=== PATIENT | female | born 1960 | race Hispanic/Latino ===

== ENCOUNTER 2023-07-18 13:22 | Observation (INO) | payer OTHER ==
[~2023-07-18] VITALS: Ht 160 cm; Wt 98.8 kg
[~2023-07-18 13:22] MED LIST: ACET-2247 PO; AMIT25TA9 PO; ASPI-1197 PO; ATOR40TA69 PO; CEFU500T67 PO; CEPH500B PO; FURO20TA6 PO; GABA300C PO; LOSA50TA64 PO; METO25TA6 PO; ONDA4TAB10 PO; PHEN100C9 PO
[2023-07-18 14:08] LABS: BASOPHILS # (AUTO) 0.02 K/uL (0.00-0.20); BASOPHILS % (AUTO) 0.2 % (0.0-5.0); EOSINOPHILS # (AUTO) 0.15 K/uL (0.00-0.70); EOSINOPHILS % (AUTO) 1.6 % (0.0-8.0); HEMATOCRIT 38.6 % (36-48); IMMATURE GRANULOCYTE ABSOLUTE 0.12 K/uL (0-1); LYMPHOCYTES # (AUTO) 0.9 K/uL (1.0-4.8); LYMPHOCYTES % (AUTO) 10.1 % (21.0-51.0); MEAN CORPUSCULAR HEMOGLOBIN 28.1 pg (27.0-33.0); MEAN CORPUSCULAR HGB CONC 33.2 g/dL (32.0-36.0); MEAN CORPUSCULAR VOLUME 84.6 fL (79-99); MONOCYTES # (AUTO) 0.6 K/uL (0.1-1.0); MONOCYTES % (AUTO) 6.2 % (3.0-13.0); NEUTROPHILS # (AUTO) 7.4 K/uL (1.8-7.7); NEUTROPHILS % (AUTO) 80.6 % (40.0-77.0); PLATELET COUNT (AUTO) 145 K/uL (130-400); RED BLOOD CELL COUNT(AUTO) 4.56 MIL/uL (4.00-5.50); RED CELL DISTRIBUTION WIDTH 12.4 % (11.0-15.5); WHITE BLOOD COUNT (AUTO) 9.2 K/uL (4.8-10.8)
[2023-07-18] MEDS: 0.9%NACL 1000ML 1,000 ML IV ONE ×3 (14:10→18:03)
[2023-07-18 14:20] LABS: CREATININE 0.8 mg/dL (0.5-1.5); MAGNESIUM 1.4 mg/dL (1.80-2.40); POTASSIUM 4.2 mmol/L (3.5-5.1)
[2023-07-18 15:06] LABS: APPEARANCE,URINE CLEAR (CLEAR); BILIRUBIN,URINE NEGATIVE (NEGATIVE); COLOR,URINE LIGHT-YELLOW (YELLOW); GLUCOSE, URINE (UA) >=1000 mg/dL (NEGATIVE); KETONES,URINE 5 mg/dL (NEGATIVE); LEUKOCYTE ESTERASE ,URINE 250 Leu/uL (NEGATIVE); NITRATE,URINE NEGATIVE (NEGATIVE); OCCULT BLOOD,URINE NEGATIVE (NEGATIVE); PH,URINE 6.5 (5.0-8.0); PROTEIN,URINE NEGATIVE (NEGATIVE); UROBILINOGEN,URINE 0.2 mg/dL (0.2-1.0)
[2023-07-18] MEDS: INSULIN HUMULIN R 100 UNIT/ML 3ML IV ONE (15:06)
[2023-07-18] MEDS: MAGNESIUM 2GM PREMIX 50ML 50 ML IV SCH (15:09)
[2023-07-18 15:15] LABS: SARS-CoV-2, RNA, NAAT POSITIVE SARS CoV-2 (NEGATIVE)
[2023-07-18 15:19] LABS: ADD UA MICROSCOPIC YES
[2023-07-18 15:25] LABS: RAPID GROUP A STREP negative (NEGATIVE)
[2023-07-18 15:34] LABS: INFLUENZA TYPE A Negative For Type A (NEGATIVE); INFLUENZA TYPE B Negative For Type B (NEGATIVE)
[2023-07-18 15:36] LABS: MUCUS,URINE RARE LPF (None Seen); RBC,URINE 0-1 /HPF (0-1); SQUAMOUS EPITHELIAL CELL,UR FEW /HPF (0-2)
[2023-07-18] MEDS: CEFTRIAXONE 1G VIAL IVPB SCH (16:07)
[2023-07-18 17:13] LABS: HEMOGLOBIN A1C 10.1 % (4.0-6.0)
[2023-07-18] MEDS ORDERED: AMLO-257 PO (17:43)
[2023-07-18] MEDS ORDERED: LOSA100T59 PO (17:44)
[2023-07-18] MEDS ORDERED: SEMA1PEN3 SQ (17:47)
[2023-07-18] MEDS ORDERED: AMIT25TA9 PO (17:47)
[2023-07-18] MEDS: ACETAMINOPHEN 325 MG TAB PO PRN (20:20)
[2023-07-18] MEDS ORDERED: HYDRALAZINE 20MG/ML VIAL IV PRN (21:00)
[2023-07-18] MEDS: ATORVASTATIN 40 MG TABLET PO SCH (21:32)
[2023-07-18] MEDS: AMITRIPTYLINE 25 MG TABLET PO SCH (21:33)
[2023-07-18] MEDS: AMLODIPINE 5 MG TAB PO SCH (21:33)
[2023-07-18] MEDS: GABAPENTIN 300 MG CAPSULE PO SCH (21:33)
[2023-07-18] MEDS: METOPROLOL TARTRATE 25 MG TAB PO SCH (21:33)
[2023-07-18] MEDS: INSULIN HUMULIN R 100 UNIT/ML 3ML SQ SCH (21:34)
[2023-07-18 23:00] VITALS: BP 121/65; PULSE 77; RESP 18; O2SAT 94
[2023-07-18] MEDS ORDERED: CHOL200079 PO (23:01)
[2023-07-18] MEDS ORDERED: [UNRECOGNIZED DRUG - CODE] PO (23:04)
[2023-07-19] VITALS (7 sets, daily range): BP systolic 116–154; BP diastolic 59–83; PULSE 67–89; RESP 16–20; O2SAT 98
[2023-07-19] MEDS: GUAIFENESIN-DM 200/20 MG 10 ML PO PRN (03:05)
[2023-07-19 07:08] LABS: BASOPHILS # (AUTO) 0.01 K/uL (0.00-0.20); BASOPHILS % (AUTO) 0.2 % (0.0-5.0); EOSINOPHILS # (AUTO) 0.05 K/uL (0.00-0.70); EOSINOPHILS % (AUTO) 0.9 % (0.0-8.0); IMMATURE GRANULOCYTE ABSOLUTE 0.07 K/uL (0-1); LYMPHOCYTES % (AUTO) 18.9 % (21.0-51.0); MEAN CORPUSCULAR HGB CONC 31.6 g/dL (32.0-36.0); MEAN CORPUSCULAR VOLUME 88.5 fL (79-99); MONOCYTES # (AUTO) 0.6 K/uL (0.1-1.0); MONOCYTES % (AUTO) 10.3 % (3.0-13.0); NEUTROPHILS # (AUTO) 3.6 K/uL (1.8-7.7); NEUTROPHILS % (AUTO) 68.4 % (40.0-77.0); PLATELET COUNT (AUTO) 115 K/uL (130-400); RED BLOOD CELL COUNT(AUTO) 4.18 MIL/uL (4.00-5.50); RED CELL DISTRIBUTION WIDTH 12.7 % (11.0-15.5); WHITE BLOOD COUNT (AUTO) 5.3 K/uL (4.8-10.8)
[2023-07-19 07:24] LABS: CREATININE 0.7 mg/dL (0.5-1.5); POTASSIUM 3.7 mmol/L (3.5-5.1)
[2023-07-19] MEDS: CEFTRIAXONE 2GM VIAL IVPB SCH (09:50)
[2023-07-19] MEDS: PHENYTOIN SODIUM 100 MG ERCAP PO SCH (09:51)
[2023-07-19] MEDS: LOSARTAN 100 MG TABLET PO SCH (09:51)
[2023-07-19] MEDS: ASPIRIN 81MG CHEW TAB PO SCH (09:52)
[2023-07-19] MEDS: ACETAMINOPHEN 500 MG TABLET PO PRN (21:58)
[2023-07-20 04:19] VITALS: BP 117/67; PULSE 84; RESP 18
[2023-07-20 08:00] VITALS: BP 129/67; PULSE 82; RESP 18; O2SAT 95
[2023-07-20] MEDS: ENOXAPARIN SODIUM 40 MG/0.4 ML SYRINGE SQ SCH (08:10)
[2023-07-20 12:00] VITALS: BP 116/50; PULSE 70; RESP 17
[2023-07-20] MEDS ORDERED: ASCO100031 PO (12:18)
[2023-07-20] MEDS ORDERED: AZIT500T4 PO (12:18)
[2023-07-20] MEDS ORDERED: CEFD300C3 PO (12:24)
== END 2023-07-20 13:10 | disposition home or self-care (01) ==
LOC: EDH 13:22 → INTOOBSV 16:40 → EDHIP 16:40 → 3DH 21:20
PROVIDERS: ADMIT Internal Medicine; ATTEND Internal Medicine
DX: U07.1 COVID-19 (principal); J12.82 Pneumonia due to coronavirus disease 2019; N39.0 Urinary tract infection, site not specified; E87.20 Acidosis, unspecified; E11.65 Type 2 diabetes mellitus with hyperglycemia; E11.40 Type 2 diabetes mellitus with diabetic neuropathy, unspecified; E83.42 Hypomagnesemia; G40.909 Epilepsy, unspecified, not intractable, without status epilepticus; E66.01 Morbid (severe) obesity due to excess calories; E78.5 Hyperlipidemia, unspecified; Z88.0 Allergy status to penicillin; Z88.8 Allergy status to other drugs, medicaments and biological substances; Z79.82 Long term (current) use of aspirin; Z68.38 Body mass index [BMI] 38.0-38.9, adult; Z86.2 Personal history of diseases of the blood and blood-forming organs and certain disorders involving the immune mechanism
CPT/HCPCS: 99285; 74176; 96365; 71045; 87635; 96361; 96375 ×2; 83036; 83735; 80048 ×2; 85025 ×2; 87077; 87088; 87186; 87880; 87804 ×2; 82948 ×8; 83605 ×2; 86140; 81001; 36415 ×2; 84145; 96376 ×2; 96372; J1815 ×3; J3475; J7030 ×2; J0696 ×3; G0378; J1650; G0379

== ENCOUNTER 2024-09-11 01:45 | Observation (INO) | payer MEDICARE, OTHER ==
[~2024-09-11] VITALS: Ht 160 cm; Wt 81.6 kg
[~2024-09-11 01:45] MED LIST changes: -ACET-2247 PO; +AMLO-257 PO; +ASCO100031 PO; +AZIT500T4 PO; +CEFD300C3 PO; -CEFU500T67 PO; -CEPH500B PO; +CHOL200079 PO; -FURO20TA6 PO; +HYDR-4060 PO; +IBUP-2070 PO; +LOSA100T59 PO; -LOSA50TA64 PO; -ONDA4TAB10 PO; +SEMA1PEN3 SQ; +[UNRECOGNIZED DRUG - CODE] PO
[2024-09-11] MEDS: LOPERAMIDE HCL 2 MG CAP PO ONE (03:14)
[2024-09-11] MEDS: 0.9%NACL 1000ML 1,000 ML IV ONE (03:14)
[2024-09-11 03:26] LABS: BASOPHILS # (AUTO) 0.03 K/uL (0.00-0.20); BASOPHILS % (AUTO) 0.2 % (0.0-5.0); EOSINOPHILS # (AUTO) 0.12 K/uL (0.00-0.70); EOSINOPHILS % (AUTO) 0.9 % (0.0-8.0); HEMATOCRIT 41.6 % (36-48); IMMATURE GRANULOCYTE ABSOLUTE 0.05 K/uL (0-1); LYMPHOCYTES # (AUTO) 2.1 K/uL (1.0-4.8); LYMPHOCYTES % (AUTO) 16.6 % (21.0-51.0); MEAN CORPUSCULAR HEMOGLOBIN 29.2 pg (27.0-33.0); MEAN CORPUSCULAR HGB CONC 32.2 g/dL (32.0-36.0); MEAN CORPUSCULAR VOLUME 90.6 fL (79-99); MONOCYTES # (AUTO) 0.8 K/uL (0.1-1.0); MONOCYTES % (AUTO) 5.9 % (3.0-13.0); NEUTROPHILS # (AUTO) 9.7 K/uL (1.8-7.7); PLATELET COUNT (AUTO) 154 K/uL (130-400); RED BLOOD CELL COUNT(AUTO) 4.59 MIL/uL (4.00-5.50); RED CELL DISTRIBUTION WIDTH 12.5 % (11.0-15.5); WHITE BLOOD COUNT (AUTO) 12.8 K/uL (4.8-10.8)
[2024-09-11 03:30] LABS: CREATININE 0.5 mg/dL (0.5-1.0); POTASSIUM 3.6 mmol/L (3.5-5.1)
[2024-09-11 03:35] LABS: ALBUMIN 3.4 g/dL (3.5-5.0); BILIRUBIN,DIRECT 0.1 mg/dL (0.0-0.3); BILIRUBIN,TOTAL 0.3 mg/dL (0.2-1.0); TOTAL PROTEIN, SERUM 6.9 g/dL (6.0-8.3)
[2024-09-11 04:10] LABS: APPEARANCE,URINE CLOUDY (CLEAR); BILIRUBIN,URINE NEGATIVE (NEGATIVE); COLOR,URINE LIGHT-YELLOW (YELLOW); GLUCOSE, URINE (UA) NEGATIVE (NEGATIVE); KETONES,URINE NEGATIVE (NEGATIVE); LEUKOCYTE ESTERASE ,URINE 500 Leu/uL (NEGATIVE); NITRATE,URINE NEGATIVE (NEGATIVE); PH,URINE 5.5 (5.0-8.0); PROTEIN,URINE NEGATIVE (NEGATIVE); UROBILINOGEN,URINE 0.2 mg/dL (0.2-1.0)
[2024-09-11 04:11] LABS: ADD UA MICROSCOPIC YES
[2024-09-11 04:33] LABS: BACTERIA,URINE MOD /HPF (None Seen); MUCUS,URINE RARE LPF (None Seen); SQUAMOUS EPITHELIAL CELL,UR RARE /HPF (0-2); WBC CLUMP FEW /HPF (0-1); WBC,URINE >100 /HPF (0-1)
[2024-09-11] MEDS: ondanSETRON 4MG INJ IVP ONE (04:53)
[2024-09-11] MEDS: cefTRIAXone 1G VIAL IVPB ONE (04:53)
--- NOTE | 2024-09-11 08:40 | HMCIMG ---
Exam Type: CT ABDOMEN/PELVIS W/O CONTRAST Clinical Information: Abdominal pain Comparison: None CT Dose Index (CTDI): 10.20 mGy Dose Length Product (DLP): 530.00 total mGy-cm PROTOCOL: Routine noncontrast helical scanning of the abdomen and pelvis was performed at 5mm collimation. Findings: No evidence of nephro or ureterolithiasis is found. No hydronephrosis or ureteral dilatation is seen. The lung bases are clear. The stomach is unremarkable. It shows no wall thickening. No gross ulceration is seen. It is not overly distended. There are no surrounding inflammatory changes. No wall lesions are identified to suggest cancer. The spleen is unremarkable. It is not enlarged. The pancreas shows normal anatomy. It is not fatty replaced. It shows no lesions. The pancreatic duct is not dilated. The gallbladder is unremarkable. It shows no cholelithiasis. The gallbladder wall is normal in thickness. There is no pericholecystic fluid. The is no acute or chronic inflammation noted. Left adrenal gland Benign fat-containing lesion. The liver is unremarkable. It shows no focal masses. The appendix is unremarkable. It shows no evidence of inflammation. No appendicolith is seen. The small bowel is unremarkable. There is no evidence of dilatation to suggest obstruction. No evidence of adynamic ileus is seen. There is no small bowel wall thickening to suggest enteritis. The colon is unremarkable. The urinary bladder is unremarkable. There is no wall thickening to suggest tumor or inflammation. There are no intraluminal calculi. There are no diverticula. There is no evidence of chronic bladder outlet obstruction. There is no evidence of urinary bladder distention to suggest urinary retention. The other pelvic structures are unremarkable. The bony and vascular structures are unremarkable for the patient's age. IMPRESSION: NEGATIVE CT SCAN OF THE ABDOMEN AND PELVIS. NO RENAL STONES. NO ACUTE PATHOLOGY OR INFLAMMATION SEEN. This study was performed using dose reduction techniques to include automated exposure control and/or adjustment of the mA and/or kV according to patient size.
--- NOTE | 2024-09-11 08:42 | ERN ---
General Chief Complaint: Abdominal Pain Stated Complaint: ABDOMINAL PAIN Time Seen by MD: 07:03 History of Present Illness Initial Comments 64-year-old female, history of diabetes and hypertension, who presents for diarrheal illness. Patient reports around 9:00 a.m. on 09/10/2024 she began with watery diarrhea. She reports that she has had dozens of episodes of watery diarrhea throughout the day and night. Nausea without vomiting. Some generalized abdominal cramping. No other symptoms. Allergies: Coded Allergies: metformin (Verified Allergy, Unknown, 07/18/23) Penicillins (Verified Adverse Reaction, Mild, RASH, 07/18/23) No anaphylaxis. Patient takes amoxicillin. Home Meds Active Scripts Ibuprofen (Ibuprofen) 600 Mg Tablet, 600 MG PO Q6H PRN for PAIN, #15 TAB Prov:DESHAWN FRAZIER MD 12/12/23 Hydrocodone/Acetaminophen (Hydrocodon-Acetaminophen 5-325) 5 Mg-325 Mg Tablet, 1 EACH PO Q6H for pain, #16 TAB 0 Refills Prov:DESHAWN FRAZIER MD 12/12/23 Cefdinir (Cefdinir) 300 Mg Capsule, 300 MG PO BID for 5 Days, #10 CAP 0 Refills Prov:TOYA GALEAS MD 07/20/23 Ascorbic Acid (Vitamin C) 1,000 Mg Tablet, 1000 MG PO DAILY for 7 Days, #7 TAB 0 Refills Prov:TOYA GALEAS MD 07/20/23 Azithromycin (Azithromycin) 500 Mg Tablet, 500 MG PO DAILY for 3 Days, #3 TAB 0 Refills Prov:TOYA GALEAS MD 07/20/23 Reported Medications Dextrose (Glucose) 4 Gram Tab.chew, 15 GM PO AD, TAB.CHEW 07/18/23 Cholecalciferol (Vitamin D3) (Vitamin D3) 50 Mcg (2000 Unit) Tab.chew, 50 MCG PO DAILY, TAB.CHEW 07/18/23 Semaglutide (Ozempic) 1 Mg/0.75 Ml (4 Mg/3 Ml) Pen.injctr, 5 MG SQ WEEKLY 07/18/23 Amitriptyline HCl (Amitriptyline HCl) 25 Mg Tablet, 75 MG PO HS, TAB 07/18/23 Losartan Potassium (Losartan Potassium) 100 Mg Tablet, 100 MG PO DAILY, TAB 07/18/23 Amlodipine Besylate (Amlodipine Besylate) 5 Mg Tablet, 5 MG PO BID, TAB 07/18/23 Aspirin (Aspirin) 81 Mg Tab.chew, 81 MG PO DAILY, TAB.CHEW 06/23/21 Atorvastatin Calcium (LIPITOR) 80 Mg Tablet, 80 MG PO HS, TAB 06/23/21 Gabapentin (Neurontin) 300 Mg Capsule, 300 MG PO TID, CAP 06/23/21 Phenytoin Sodium Extended (Phenytoin Sodium Extended) 100 Mg Capsule, 400 MG PO DAILY, CAP 06/23/21 Metoprolol Tartrate (Metoprolol Tartrate) 25 Mg Tablet, 25 MG PO BID, TAB 06/23/21 Past Medical History Past Medical History: Diabetes-Type II, High Cholesterol, Hypertension Medical History Other: NEUROPATHY, morbidly obese Past Surgical History: Hysterectomy Family History Family History: Negative Social History Social History: Lives with family ROS Dictation CONSTITUTIONAL: General weakness HEAD/FACE: No signs of trauma. EENT: No eye pain, no blurred vision, no tearing, no double vision, no ear pain, no ear discharge, no nose pain, no nasal congestion, no throat pain, no throat swelling, no mouth pain. RESPIRATORY: No cough, no orthopnea, no SOB, no stridor, no wheezing. CARDIOVASCULAR: No chest pain, no edema, no palpitations, no syncope. GASTROINTESTINAL/ABDOMINAL: Diarrhea weakness GENITOURINARY: No abnormal discharge, no dysuria, no frequent urination, no hematuria. No complaints of pain in the genitals. MUSCULOSKELETAL: No back pain, no gout, no joint pain, no joint swelling, no muscle pain, no muscle stiffness, no neck pain. INTEGUMENTARY: No change in color, no change in hair/nails, no dryness, no lesion, no lumps, no rash. NEUROLOGICAL/PSYCH: No anxiety, not depressed, no emotional problem, no headache, no numbness, no pre-existing deficit, no history of seizures, no tremors, no weakness. HEMATOLOGIC/LYMPHATIC: Not anemic, no history of blood clots, no apparent bleeding, no bruising, glands not swollen. All Systems Negative, Except as Noted. Physical Exam Physical Exam Dictation VITAL SIGNS: Reviewed. GENERAL APPEARANCE: Alert, oriented x3, no acute distress, obese. HEAD AND FACE: Non-traumatic. EYES: PERRL, pink conjunctivas, eyelid no trauma, anterior chamber clear. EARS: Pinnas intact and no signs of trauma or erythema. Ear canals clear and no discharge. TMs no erythema. NOSE: No discharge, no bleeding. OROPHARYNX: Mouth normal, teeth no caries, tongue pink. Pharynx clear, no erythema. Tonsils no exudates, no abscesses noted. Mucous membrane moist. NECK: Supple, non-tender, no thyromegaly, no masses, no JVD, no bruits. BREAST: Deferred. CHEST: No tenderness, no crepitus, no paradoxical movement, no retractions. LUNGS: Clear, well-ventilated, symmetric, no rales, no wheezing, no rhonchi, no stridor, good breath sounds bilaterally. HEART: Regular rate, regular rhythm, no murmur, no gallops. VASCULAR: No peripheral edema. ABDOMEN: Soft, positive bowel sounds, nondistended, no guarding, nontender, no rebound, no masses no hepatomegaly, no splenomegaly, no Pepe's sign, no hernias. RECTAL: Deferred. GENITAL: Deferred. NEUROLOGICAL: Normal speech, gross motor function intact, gross sensory function intact. MUSCULOSKELETAL: Neck nontender, full range of motion, back nontender, full range of motion. EXTREMITIES: Nontender, full range of motion. SKIN: Color pink, dry, no turgor, no rash, no lacerations, no abrasions, no contusions. LYMPHATICS: Deferred. Results Laboratory and Microbiology Lab and Micro Result Laboratory Tests Test 09/11/24 03:10 09/11/24 04:02 White Blood Count 12.8 K/uL (4.8-10.8) H Red Blood Count 4.59 MIL/uL (4.00-5.50) Hemoglobin 13.4 g/dL (12.0-16.0) Hematocrit 41.6 % (36-48) Mean Corpuscular Volume 90.6 fL (79-99) Mean Corpuscular Hemoglobin 29.2 pg (27.0-33.0) Mean Corpuscular Hemoglobin Concent 32.2 g/dL (32.0-36.0) Red Cell Distribution Width 12.5 % (11.0-15.5) Platelet Count 154 K/uL (130-400) Mean Platelet Volume 9.8 fL (7.5-10.5) Immature Granulocyte % (Auto) 0.4 % (0-1) Neutrophils (%) (Auto) 76.0 % (40.0-77.0) Lymphocytes (%) (Auto) 16.6 % (21.0-51.0) L Monocytes (%) (Auto) 5.9 % (3.0-13.0) Eosinophils (%) (Auto) 0.9 % (0.0-8.0) Basophils (%) (Auto) 0.2 % (0.0-5.0) Neutrophils # (Auto) 9.7 K/uL (1.8-7.7) H Lymphocytes # (Auto) 2.1 K/uL (1.0-4.8) Monocytes # (Auto) 0.8 K/uL (0.1-1.0) Eosinophils # (Auto) 0.12 K/uL (0.00-0.70) Basophils # (Auto) 0.03 K/uL (0.00-0.20) Absolute Immature Granulocyte (auto 0.05 K/uL (0-1) Nucleated Red Blood Cells 0.0 % (0.0-0.19) Sodium Level 139 mmol/L (136-145) Potassium Level 3.6 mmol/L (3.5-5.1) Chloride Level 105 mmol/L (101-111) Carbon Dioxide Level 32 mmol/L (21-32) Blood Urea Nitrogen 16 mg/dL (7-18) Creatinine 0.5 mg/dL (0.5-1.0) Glomerular Filtration Rate Calc 103 mL/min (>90) Random Glucose 133 mg/dL (70-105) H Lactic Acid Level 2.0 mmol/L (0.8-2.5) Total Calcium 9.1 mg/dL (8.5-10.1) Total Bilirubin 0.3 mg/dL (0.2-1.0) Direct Bilirubin 0.1 mg/dL (0.0-0.3) Aspartate Amino Transf (AST/SGOT) 50 U/L (10-37) H Alanine Aminotransferase (ALT/SGPT) 92 U/L (12-78) H Alkaline Phosphatase 87 U/L (50-136) Total Protein 6.9 g/dL (6.0-8.3) Albumin 3.4 g/dL (3.5-5.0) L Lipase 58 U/L (16-77) Urine Color LIGHT-YELLOW (YELLOW) Urine Appearance CLOUDY (CLEAR) H Urine pH 5.5 (5.0-8.0) Urine Specific [place] 1.014 (1.001-1.031) Urine Protein NEGATIVE mg/dL (NEGATIVE) Urine Glucose (UA) NEGATIVE mg/dL (NEGATIVE) Urine Ketones NEGATIVE mg/dL (NEGATIVE) Urine Occult Blood +- (TRACE) (NEGATIVE) H Urine Nitrate NEGATIVE (NEGATIVE) Urine Bilirubin NEGATIVE mg/dL (NEGATIVE) Urine Urobilinogen 0.2 mg/dL (0.2-1.0) Urine Leukocyte Esterase 500 Dave/uL (NEGATIVE) H Urine RBC 2-5 /HPF (0-1) H Urine WBC >100 /HPF (0-1) H Urine WBC Clumps (Auto) FEW /HPF (0-1) Urine Squamous Epithelial Cells RARE /HPF (0-2) Urine Bacteria MOD /HPF (None Seen) MDM CC: diarrhea all day historian: patient Comorbidities: Diabetes type 2, DLD, HTN Limitations by social determinants of health: None Differential diagnosis: Electrolyte abnormality, diarrheal illness, UTI, dehydration, other. Vital signs: Stable, remained stable here in the ER. Labs (independently ordered and interpreted by me ): Leukocytosis 12.8 K, no shift or bands. chemistry panel is unremarkable. Lactic acid is 2.0. Mild transaminitis, other liver enzymes are stable. Lipase is stable. Urinalysis consistent with infection. Five hundred leuk esterase, greater than [address] WBCs[address] Some occult blood. CT scan of the abdomen and pelvis without contrast (independently ordered and interpreted by me ): No obvious surgical pathology or major abnormality. Radiology report: Possible diarrheal illness without any wall thickening. Treatment in ER: 1 L normal saline, loperamide, 1 g of Rocephin IV, Zofran IV Plan: We will admit for diarrhea, dehydration, UTI. Patient agrees with the plan. Hospitalist consulted. Agrees with the admission. ED Course Orders Procedure Category Date Status Time Basic Metabolic Panel LAB 09/11/24 Complete 01:55 Lipase LAB 09/11/24 Complete 01:55 Lactic Acid LAB 09/11/24 Complete 01:55 Hepatic Function Panel LAB 09/11/24 Complete 01:55 Urinalysis Profile LAB 09/11/24 Complete 01:55 0.9%Nacl 1000ml (Ns PHA 09/11/24 Complete 1000ml) 02:00 Loperamide Hcl 2 Mg PHA 09/11/24 Complete Cap (Imodium) 02:00 Cbc With Differential LAB 09/11/24 Complete 01:55 Culture Urine RICARDO 09/11/24 In Process 04:11 Ceftriaxone 1g Vial PHA 09/11/24 Complete (Rocephine 1g Inj) 05:00 Ondansetron 4mg Inj PHA 09/11/24 Complete (Zofran 4mg Inj) 05:00 Ct Abdomen/Pelvis W/O CT 09/11/24 Resulted Contrast 06:04 Current Medications Medications (Trade) Dose Ordered Sig/Norma Route PRN Reason Start Time Stop Time Status Last Admin Dose Admin Ceftriaxone Sodium (ROCEphine 1G INJ) 1 gm ONCE ONCE IVPB 09/11/24 05:00 09/11/24 05:01 DC 09/11/24 04:53 Loperamide HCl (Imodium) 2 mg ONCE ONCE PO 09/11/24 02:00 09/11/24 02:01 DC 09/11/24 03:14 Ondansetron HCl (zoFRAN 4MG INJ) 4 mg ONCE ONCE IVP 09/11/24 05:00 09/11/24 05:01 DC 09/11/24 04:53 Sodium Chloride 1,000 ml @ 0 mls/hr ONCE ONCE IV 09/11/24 02:00 09/11/24 02:01 DC 09/11/24 03:14 Vital Signs Date Time Temp Pulse Resp B/P (MAP) Pulse Ox O2 Delivery O2 Flow Rate FiO2 09/11/24 06:09 75 16 128/64 95 Room Air* 0 21 09/11/24 04:17 76 18 122/44 96 Room Air* 0 21 09/11/24 03:03 98.1 78 18 134/47 97 Room Air* 0 21 09/11/24 01:56 98.1 77 18 146/71 100 Room Air* 0 21 DX & DISP Disposition: Inpatient Departure Impression: Primary Impression: Diarrheal stools Additional Impressions: Dehydration, UTI (urinary tract infection) Condition: Stable Referrals: JOSELUIS DE LEON DO (PCP) BHUMI MONTANO DO Sep 11, 2024 08:42
[2024-09-11] MEDS: PHENYTOIN SODIUM 100 MG ERCAP PO SCH (10:35)
[2024-09-11] MEDS: metoPROLOL tartRATE 25 MG TAB PO SCH (10:35)
[2024-09-11] MEDS: amLODIPine 5 MG TAB PO SCH (10:35)
[2024-09-11] MEDS: LACTATED RINGERS 1000ML 1,000 ML IV SCH (10:36)
[2024-09-11] MEDS ORDERED: hydrALAZine 20MG/ML VIAL IV PRN (11:00)
[2024-09-11] MEDS: INSULIN humuLIN R 100 UNIT/ML 3ML SQ SCH (11:30)
--- NOTE | 2024-09-11 11:35 | HP ---
[facility] HISTORY [facility] PHYSICAL Date of Service: Sep 11, 2024 Time of Service: 11:26 HISTORY OF PRESENT ILLNESS: Date of service: 09/11/2024, patient was seen in ER room 14 64-year-old female with underlying history of obesity, diabetes, hypertension, seizure disorder who presented to the ER for further evaluation of abdominal pain and multiple episodes of watery diarrhea. Symptoms have been ongoing since yesterday afternoon. Patient states that she has had about 50 episodes of loose watery stools since then. She has been having generalized weakness as well as foul-smelling urine as well. Patient states that she ate grilled chicken y esterday with cream cheese and salad. Denies exposure to sick contacts previously. Abdominal pain is improving. Diarrhea is improved after receiving loperamide in the ER but she continues to feel nauseous and generally ill. On presentation to the hospital, patient was noted to be afebrile and hemodynamically stable. [place] [id number] with neutrophilia. BMP remarkable for sodium 139, potassium 3.6, creatinine 0.5, blood glucose of 133 lactic acid of 2.0, AST of 50, ALT of 92. Urinalysis showed leukocyte esterase positive, pyuria, and bacteriuria. Patient will be admitted for further management of infectious gastroenteritis, developing urinary tract infection, and associated dehydration. REVIEW OF SYSTEMS CONSTITUTIONAL: Denies fevers, chills, or night sweats. No unintentional weight loss reported. NEUROLOGICAL: Denies headache, amaurosis fugax, motor weakness, sensory deficit, vertigo/spinning sensation, gait abnormalities, or tremors. ENT: No hearing loss, otalgia, otorrhea, rhinitis, rhinorrhea, hoarseness, or sore throat. CARDIOVASCULAR: Denies any exertional angina, dyspnea on exertion, orthopnea, p aroxysmal nocturnal dyspnea, palpitations, life-threatening arrhythmias, claudication. PULMONARY: Denies any shortness of breath, cough, phlegm/sputum, hemoptysis, pleuritic chest pain. SLEEP: Denies morning headaches, daytime somnolence or napping. Denies difficulty falling asleep, staying asleep, waking from sleep. Denies knowledge of snoring. GASTROINTESTINAL: Denies any type of dysphagia to either liquids or solids. Denies nausea, vomiting, pyrosis, early satiety, abdominal pain, diarrhea, constipation, or changes in stool consistency or caliber. Denies coffee-ground emesis, hematemesis, hematochezia, or melanotic stools. GENITOURINARY: Denies frequency, urgency, nocturia, hematuria or incontinence (Storage/Irritative symptoms.) Low urinary stream, straining to void, urinary intermittency or hesitancy, splitting of the voiding stream, terminal dribbling. ENDOCRINOLOGIC: Denies polyuria, polydipsia, polyphagia or heat/cold intolerances. HEMATOLOGIC: Denies thrombophilia/previous clots, or coagulopathy/bleeding disorders. ONCOLOGIC: Denies personal history of malignancy. DERMATOLOGIC: Denies rashes or pruritus. PSYCHIATRIC: Denies any suicidal or homicidal ideation. Denies hallucinations. PAST MEDICAL HISTORY: Hypertension, diabetes mellitus type 2, hyperlipidemia, hx of seizures disorder on outpatient phenytoin, History of neuropathy PAST SURGICAL HISTORY: Denied denied any pertinent surgical history PAST SOCIAL HISTORY: Denied smoking, alcohol, drug use FAMILY HISTORY: Denied any pertinent family history Allergies: Patient has adverse reaction to penicillin metformin Home medications: Family will be bringing home medication list to be reconciled and updated Coded Allergies: metformin (Verified Allergy, Unknown, 07/18/23) Penicillins (Verified Adverse Reaction, Mild, RASH, 07/18/23) No anaphylaxis. Patient takes amoxicillin. PHYSICAL EXAM GENERAL APPEARANCE: The patient is awake, alert, and oriented, in no acute cardiopulmonary distress. NEUROLOGICAL: Cranial nerves II-XII grossly intact. Motor is 5/5 in bilateral upper and lower extremities proximal to distal. No sensory deficits. HEENT: Face is symmetric. Pupils are equal and reactive. Extraocular movements are intact. NECK: Supple. No JVD. No thyromegaly. No submental, submandibular, pre- /postauricular, occipital or supraclavicular lymphadenopathy. CHEST: Normal chest expansion. No Telemetry. LUNGS: Absence of any rales, rhonchi or any wheezing. CARDIOVASCULAR: Regular. S1 and S2 normal. No appreciable rubs, murmurs or gallops. ABDOMEN: Soft, nondistended. Mild tenderness to palpation of the lower abdominal quadrant : Deferred. No [place]. EXTREMITIES: Non-edematous and not cyanotic. No clubbing. Good capillary refill. SKIN: No skin breakdown. Vital Sign (Last 24 Hours) 09/11/24 09:40 Temp 98.1 Pulse 80 Resp 16 B/P (MAP) 145/79 Pulse Ox 98 O2 Delivery Room Air* O2 Flow Rate 0 FiO2 21 LABS: Laboratory: Test 09/11/24 11:21 09/11/24 04:02 09/11/24 03:10 Range/Units Whole Blood Glucose 121 H 70-110 MG/DL Urine Color LIGHT-YELLOW YELLOW Urine Appearance CLOUDY H CLEAR Urine pH 5.5 5.0-8.0 Urine Specific [place] 1.014 1.001-1.031 Urine Protein NEGATIVE NEGATIVE mg/dL Urine Glucose (UA) NEGATIVE NEGATIVE mg/dL Urine Ketones NEGATIVE NEGATIVE mg/dL Urine Occult Blood +- (TRACE) H NEGATIVE Urine Nitrate NEGATIVE NEGATIVE Urine Bilirubin NEGATIVE NEGATIVE mg/dL Urine Urobilinogen 0.2 0.2-1.0 mg/dL Urine Leukocyte Esterase 500 H NEGATIVE Dave/uL Urine RBC 2-5 H 0-1 /HPF Urine WBC >100 H 0-1 /HPF Urine WBC Clumps (Auto) FEW 0-1 /HPF Urine Squamous Epithelial Cells RARE 0-2 /HPF Urine Bacteria MOD None Seen /HPF White Blood Count 12.8 H 4.8-10.8 K/uL Red Blood Count 4.59 4.00-5.50 MIL/uL Hemoglobin 13.4 12.0-16.0 g/dL Hematocrit 41.6 36-48 % Mean Corpuscular Volume 90.6 79-99 fL Mean Corpuscular Hemoglobin 29.2 27.0-33.0 pg Mean Corpuscular Hemoglobin Concent 32.2 32.0-36.0 g/dL Red Cell Distribution Width 12.5 11.0-15.5 % Platelet Count 154 130-400 K/uL Mean Platelet Volume 9.8 7.5-10.5 fL Immature Granulocyte % (Auto) 0.4 0-1 % Neutrophils (%) (Auto) 76.0 40.0-77.0 % Lymphocytes (%) (Auto) 16.6 L 21.0-51.0 % Monocytes (%) (Auto) 5.9 3.0-13.0 % Eosinophils (%) (Auto) 0.9 0.0-8.0 % Basophils (%) (Auto) 0.2 0.0-5.0 % Neutrophils # (Auto) 9.7 H 1.8-7.7 K/uL Lymphocytes # (Auto) 2.1 1.0-4.8 K/uL Monocytes # (Auto) 0.8 0.1-1.0 K/uL Eosinophils # (Auto) 0.12 0.00-0.70 K/uL Basophils # (Auto) 0.03 0.00-0.20 K/uL Absolute Immature Granulocyte (auto 0.05 0-1 K/uL Nucleated Red Blood Cells 0.0 0.0-0.19 % Sodium Level 139 136-145 mmol/L Potassium Level 3.6 3.5-5.1 mmol/L Chloride Level 105 101-111 mmol/L Carbon Dioxide Level 32 21-32 mmol/L Blood Urea Nitrogen 16 7-18 mg/dL Creatinine 0.5 0.5-1.0 mg/dL Glomerular Filtration Rate Calc 103 >90 mL/min Random Glucose 133 H 70-105 mg/dL Lactic Acid Level 2.0 0.8-2.5 mmol/L Total Calcium 9.1 8.5-10.1 mg/dL Total Bilirubin 0.3 0.2-1.0 mg/dL Direct Bilirubin 0.1 0.0-0.3 mg/dL Aspartate Amino Transf (AST/SGOT) 50 H 10-37 U/L Alanine Aminotransferase (ALT/SGPT) 92 H 12-78 U/L Alkaline Phosphatase 87 50-136 U/L Total Protein 6.9 6.0-8.3 g/dL Albumin 3.4 L 3.5-5.0 g/dL Lipase 58 16-77 U/L Current Medications Medications (Trade) Dose Ordered Sig/Norma Route PRN Reason Start Time Stop Time Status Last Admin Dose Admin Acetaminophen (TYLenol 325MG TAB) 650 mg Q12H PRN PO MILD PAIN (1-3) 09/11/24 10:30 10/11/24 10:29 Amlodipine Besylate (NorvASC 5MG TAB) 5 mg Q24H PO 09/11/24 10:30 10/11/24 10:29 09/11/24 10:35 5 MG Ceftriaxone Sodium (ROCEphine 1G INJ) 1 gm BID IVPB 09/11/24 21:00 09/21/24 20:59 Hydralazine HCl (APRESOLine 20MG INJ) 5 mg Q6H PRN IV ADMINISTER FOR SBP > 160 09/11/24 11:00 4/9/25 10:59 Insulin Human Regular (humuLIN R 100 UNIT/ML 3ML) INSULIN SLIDING SCAL... ACHS SQ 09/11/24 11:30 10/11/24 11:29 Lactated Ringer's 1,000 ml @ 75 mls/hr [id number] IV 09/11/24 10:30 10/11/24 10:29 09/11/24 10:36 75 MLS/HR Losartan Potassium (CozAAR 50 mg TAB) 50 mg BID PO 09/11/24 12:00 10/11/24 11:59 Metoprolol Tartrate (loprESSOR) 25 mg Q12H PO 09/11/24 10:30 10/11/24 10:29 09/11/24 10:35 25 MG Phenytoin Sodium (Dilantin 100mg Er Cap) 400 mg Q24H PO 09/11/24 10:30 10/11/24 10:29 09/11/24 10:35 400 MG DIAGNOSTICS / RADIOLOGY: SERVICE 0604 REASON: Abdominal pain ORDERING PHYSICIAN: DWIGHT SAUCEDO MD PROCEDURE: ABD PEL WO - CT ABDOMEN/PELVIS W/O CONTRAST Exam Type: CT ABDOMEN/PELVIS W/O CONTRAST Clinical Information: Abdominal pain Comparison: None CT Dose Index (CTDI): 10.20 mGy Dose Length Product (DLP): 530.00 total mGy-cm PROTOCOL: Routine noncontrast helical scanning of the abdomen and pelvis was performed at 5mm collimation. Findings: No evidence of nephro or ureterolithiasis is found. No hydronephrosis or ureteral dilatation is seen. The lung bases are clear. The stomach is unremarkable. It shows no wall thickening. No gross ulceration is seen. It is not overly distended. There are no surrounding inflammatory changes. No wall lesions are identified to suggest cancer. The spleen is unremarkable. It is not enlarged. The pancreas shows normal anatomy. It is not fatty replaced. It shows no lesions. The pancreatic duct is not dilated. The gallbladder is unremarkable. It shows no cholelithiasis. The gallbladder wall is normal in thickness. There is no pericholecystic fluid. The is no acute or chronic inflammation noted. Left adrenal gland Benign fat-containing lesion. The liver is unremarkable. It shows no focal masses. The appendix is unremarkable. It shows no evidence of inflammation. No appendicolith is seen. The small bowel is unremarkable. There is no evidence of dilatation to suggest obstruction. No evidence of adynamic ileus is seen. There is no small bowel wall thickening to suggest enteritis. The colon is unremarkable. The urinary bladder is unremarkable. There is no wall thickening to suggest tumor or inflammation. There are no intraluminal calculi. There are no diverticula. There is no evidence of chronic bladder outlet obstruction. There is no evidence of urinary bladder distention to suggest urinary retention. The other pelvic structures are unremarkable. The bony and vascular structures are unremarkable for the patient's age. IMPRESSION: NEGATIVE CT SCAN OF THE ABDOMEN AND PELVIS. NO RENAL STONES. NO ACUTE PATHOLOGY OR INFLAMMATION SEEN. This study was performed using dose reduction techniques to include automated exposure control and/or adjustment of the mA and/or kV according to patient size. DICTATED BY: CATALINO LAW MD DATE: 09/11/24836 ELECTRONICALLY SIGNED BY: CATALINO LAW MD DATE: 09/11/24839 ASSESSMENT: Acute infectious gastroenteritis, POA Acute urinary tract infection, POA Acute dehydration with hypovolemia, POA Underlying history of hypertension, POA Hyperlipidemia, POA Type 2 diabetes mellitus, POA Obesity, POA Chronic hepatitis since 2020, POA Underlying history of seizure disorder on outpatient phenytoin, POA PLAN: Patient will be admitted to medical-surgical floor under telemetry monitoring Patient received bolus of IV fluids with NS in the ER, we will start maintenance IV fluid with LR at 75 mls/h Follow up urine culture, we will obtain GI PCR panel and stool culture Patient will be started on a liquid diet, lactose-free Broad-spectrum antibiotics with IV Rocephin 1 g twice daily, we will discuss with Infectious Disease if patient needs Flagyl due to risk of seizures associated with Flagyl and lowering of seizure threshold Patient will continue with home dose of phenytoin 400 mg daily for management of underlying history of seizure Continue with home antihypertensives with amlodipine 5 mg daily, metoprolol tartrate 25 mg b.i.d., we will decrease losartan to 50 mg b.i.d. due to relative hypovolemia Anticipate hospitalization for at least 48 hours pending urine culture report Consultation with Infectious Disease will be requested Electrolytes will be repleted per protocol All labs will be repeated in the morning Patient has chronic elevation of both AST and ALT since 2020, we will add routine labs for chronic hepatitis with a.m. labs, discussed with patient that she needs to follow up with GI for workup for chronic hepatitis, patient verbalized understanding Date of service: 09/11/2024 Prognosis guarded Plan of care was discussed with patient and at bedside, Mark Costello MD Advanced Care Planning: Which of the following were discussed: Hospice care: Yes __ No _X_ Therapeutic options: Yes _X_ No __ Advance directives: Yes _X_ No __ Other discussions: Discussed with who?: Patient Voluntary nature of this service was explained to the patient? Yes __ No _x_ Amount of time spent: 20 minutes MARK COSTELLO MD Sep 11, 2024 11:35
[2024-09-11 11:47] LABS: MAGNESIUM 1.3 mg/dL (1.80-2.40)
[2024-09-11] MEDS: LoSARTan 50 MG TABLET PO SCH (12:09)
[2024-09-11 12:25] LABS: INR 0.97 (0.85-1.15); PROTHROMBIN TIME 10.3 SEC (9.6-11.6)
[2024-09-11 12:27] LABS: PARTIAL THROMBOPLASTIN TIME 25.7 SEC (26.3-35.5)
--- NOTE | 2024-09-11 15:17 | NUR ---
DCP Patient states lives with Chuck Mckeon, Spouse [phone], in a house with walk in shower and handicapped accessible. States she is retired, remains independent and drives self. States can complete ADL's on her own. Denies medical devices. Denies home health service, home care provider and dialysis. PCP - Pallavi Strauss DO Pharmacy - [facility]. Upon discharge, Chuck Mckeon, Spouse [phone] home and assist with care, as needed. States she may need a shower chair; referred to PCP for prescription. Addendum: 09/11/24 at 1521 by EFREM WAGGONER RN CM Amended: Links added.
[2024-09-11] MEDS ORDERED: LOPERAMIDE HCL 2 MG CAP PO PRN (15:30)
[2024-09-11] MEDS ORDERED: METF-444 PO (15:57)
[2024-09-11] MEDS: acetaMINOPHEN 325 MG TAB PO PRN (18:09)
--- NOTE | 2024-09-11 20:44 | NUR ---
PT COMPLAINS OF HEADACHE AND ABD PAIN AFTER EATING YOGURT. DR. URBAN MADE AWARE. PER DR URBAN, GIVE TORADOL IVP, CT HEAD W/O CONTRAST, MORPHIN IV IF TORADOL DOESNT WORK.
[2024-09-11] MEDS ORDERED: morPHINE 2 MG SYG IVP PRN (21:00)
[2024-09-11] MEDS: ondanSETRON 4MG INJ IVP PRN (21:07)
[2024-09-11] MEDS: ketOROlac 15MG/ML VIAL (15MG/ML) IV ONE (21:08)
[2024-09-11] MEDS: cefTRIAXone 1G VIAL IVPB SCH (21:08)
--- NOTE | 2024-09-11 21:25 | HMCIMG ---
Exam Type: CT HEAD/BRAIN W/O CONTRAST Clinical Information: HEADACHE, HX OF MIGRAINES FOR SEVERAL MONTHS Comparison: None CT Dose Index (CTDI): 57.33 mGy Dose Length Product (DLP): 956.79 total mGy-cm Findings: The examination is unremarkable. Maharaj-white matter junction is preserved. No intra or extra axial lesions or fluid collections are seen. Specifically, maharaj and white matter are normal in signal characteristics with normal caliber of ventricles and periventricular cisterns with no evidence of intra or or extra-axial hemorrhage, lacunar infarct, or major territorial infarct, mass, or other abnormality. There are no infarcts. There are no hemorrhages. Periventricular white matter locations are preserved. The orbital contents and structures of the posterior fossa are intact. Impression: Normal CT of the head. This study was performed using dose reduction techniques to include automated exposure control and/or adjustment of the mA and/or kV according to patient size.
--- NOTE | 2024-09-12 04:16 | CONS ---
INFECTIOUS DISEASE CONSULTATION NOTE DATE OF SERVICE: 09/11/2024 REQUESTING PHYSICIAN: Mark Costello MD REASON FOR CONSULTATION: UTI and diarrhea. HISTORY OF PRESENT ILLNESS: A 64-year-old female with morbid obesity, diabetes mellitus, hypertension, presented to the hospital with diarrhea of one-day duration. The patient also complained of abdominal pain, localized to the lower quadrant. No nausea or vomiting. Stool is said to be watery and nonbloody. CT of the abdomen was done, came back with normal study. There is also complaining of cloudy urine with odor. Has no dysuria, but complained of urinary frequency. No hematuria. Denies chest pain. No palpitation or orthopnea. Urinalysis was positive. PAST MEDICAL HISTORY: * Diabetes mellitus. * Obesity. * Hypertension. * Shingles. PAST SURGICAL HISTORY: None. ALLERGIES: * PENICILLIN, ____. * NITROFURANTOIN. CURRENT MEDICATIONS: Reviewed. SOCIAL HISTORY: No alcohol, tobacco, or illicit drug use. FAMILY HISTORY: Positive for diabetes mellitus. REVIEW OF SYSTEMS: CONSTITUTIONAL: No fever or chills. Positive for weakness. No weight loss or night sweats. EYES: No eye pain, no photophobia or diplopia. HENT: No sore throat. No rhinorrhea. NECK: No neck pain or neck swelling. RESPIRATORY: No cough, no hemoptysis or pleuritic pain. CARDIOVASCULAR: No chest pain, no palpitation or orthopnea. GASTROINTESTINAL: Positive for diarrhea. No nausea or vomiting. Positive for abdominal pain. GENITOURINARY: No dysuria, urgency, or urinary frequency. CENTRAL NERVOUS SYSTEM: No headache, dyspnea, or slurred speech. PSYCHIATRY: No depression, no suicidal ideation. MUSCULOSKELETAL: No joint pain, no joint swelling. PHYSICAL EXAMINATION: GENERAL: On examination, elderly female, awake. VITAL SIGNS: Temperature 98.0, pulse 80, respirations 16, BP 145/79. EYES: No icterus. Pupils equal and reactive. HENT: No oral thrush seen. Moist oral mucosa. NECK: Supple. No JVD or thyromegaly. LUNGS: Good air entry. No rales, no rhonchi. CARDIOVASCULAR: S1, S2 regular. No murmur heard. ABDOMEN: Full, soft, nontender. Bowel sound is present. CENTRAL NERVOUS SYSTEM: Awake, alert, oriented x 3. No focal deficits. SKIN: No rashes, no itchiness. LYMPHATIC: No peripheral lymphadenopathy. MUSCULOSKELETAL: No joint swelling, erythema, or tenderness. BACK: No deformity and no pressure ulcer. LABORATORY DATA: Sodium 139, potassium 3.6, BUN 16, creatinine 0.5. WBC 12.8, hemoglobin 13.4, platelet 154. Urinalysis, wbc greater than ____, leukocyte esterase 500. RADIOLOGY: CT of the abdomen and pelvis unremarkable. ASSESSMENT: A 64-year-old female presenting with diarrhea and abdominal pain. CURRENT PROBLEMS: Include: * Noninfectious gastroenteritis. * Urinary tract infection. * Hypertension. * Diabetes mellitus. * Obesity. PLAN: * Continue ceftriaxone. * Send stool for PCR. * Continue antidiabetic. * Continue antihypertensive. * Monitor electrolytes. * Continue antiemetic. * Continue DVT prophylaxis. * The patient will be followed up closely. Thank you for allowing me to participate in the care of this patient. TID: [id number] RECEIPT: [id number]
[2024-09-12 09:08] LABS: BASOPHILS # (AUTO) 0.02 K/uL (0.00-0.20); BASOPHILS % (AUTO) 0.3 % (0.0-5.0); EOSINOPHILS # (AUTO) 0.09 K/uL (0.00-0.70); EOSINOPHILS % (AUTO) 1.6 % (0.0-8.0); HEMATOCRIT 39.8 % (36-48); IMMATURE GRANULOCYTE ABSOLUTE 0.02 K/uL (0-1); LYMPHOCYTES % (AUTO) 34.4 % (21.0-51.0); MEAN CORPUSCULAR HGB CONC 32.2 g/dL (32.0-36.0); MONOCYTES # (AUTO) 0.3 K/uL (0.1-1.0); MONOCYTES % (AUTO) 5.9 % (3.0-13.0); NEUTROPHILS # (AUTO) 3.3 K/uL (1.8-7.7); NEUTROPHILS % (AUTO) 57.5 % (40.0-77.0); PLATELET COUNT (AUTO) 151 K/uL (130-400); RED BLOOD CELL COUNT(AUTO) 4.42 MIL/uL (4.00-5.50); RED CELL DISTRIBUTION WIDTH 12.6 % (11.0-15.5); WHITE BLOOD COUNT (AUTO) 5.8 K/uL (4.8-10.8)
[2024-09-12] MEDS: GABAPENTIN 300 MG CAPSULE PO SCH (09:13)
[2024-09-12] MEDS: amLODIPine 5 MG TAB PO SCH (09:13)
[2024-09-12] MEDS: ENOXAPARIN SODIUM 40 MG/0.4 ML SYRINGE SQ SCH (09:13)
[2024-09-12 09:38] LABS: ALBUMIN 3.2 g/dL (3.5-5.0); BILIRUBIN,TOTAL 0.2 mg/dL (0.2-1.0); CREATININE 0.4 mg/dL (0.5-1.0); MAGNESIUM 1.4 mg/dL (1.80-2.40); POTASSIUM 3.6 mmol/L (3.5-5.1); TOTAL PROTEIN, SERUM 6.8 g/dL (6.0-8.3)
--- NOTE | 2024-09-12 16:36 | PN ---
[facility] PROGRESS NOTE Date of Service: Sep 12, 2024 Time of Service: 16:12 SUBJECTIVE: Ms. Anuj Sands, 64-year-old female with past medical history of obesity, diabetes mellitus type 2 , hypertension, seizure disorder presented to the ER with abdominal pain and multiple episodes of watery diarrhea. She reported experiencing diarrhea over the past 2 months after starting metformin, with s udden increase in frequency yesterday following the consumption of grilled chicken and cheese. Initial labs WBC 12.8 With neutrophilia, AST 50, ALT 92, urinalysis positive for leukocyte esterase pyuria and bacteriuria. She is admitted for further evaluation and treatment for acute gastroenteritis, UTI. ID consult was obtained. 09/12/2024 Patient is seen and examined at the bedside. She states that her abdominal pain, diarrhea episodes have significantly improved. She is tolerating full liquid diet with no symptoms/difficulties. CT abdomen resulted in no acute findings. CT head is normal. Labs WBC improved from 12.8-5.8, magnesium improved from 1.3-1.4, CMP unremarkable. Urine culture resulted in Gram-negative rods. REVIEW OF SYSTEMS CONSTITUTIONAL: Denies fevers, chills, or night sweats. No unintentional weight loss reported. NEUROLOGICAL: Denies headache, amaurosis fugax, motor weakness, sensory deficit, vertigo/spinning sensation, gait abnormalities, or tremors. ENT: No hearing loss, otalgia, otorrhea, rhinitis, rhinorrhea, hoarseness, or sore throat. CARDIOVASCULAR: Denies any exertional angina, dyspnea on exertion, orthopnea, paroxysmal nocturnal dyspnea, palpitations, life-threatening arrhythmias, claudication. PULMONARY: Denies any shortness of breath, cough, phlegm/sputum, hemoptysis, pleuritic chest pain. SLEEP: Denies morning headaches, daytime somnolence or napping. Denies difficulty falling asleep, staying asleep, waking from sleep. Denies knowledge of snoring. GASTROINTESTINAL: Denies any type of dysphagia to either liquids or solids. Denies nausea, vomiting, pyrosis, early satiety, abdominal pain, diarrhea, constipation, or changes in stool consistency or caliber. Denies coffee-ground emesis, hematemesis, hematochezia, or melanotic stools. GENITOURINARY: Denies frequency, urgency, nocturia, hematuria or incontinence (Storage/Irritative symptoms.) Low urinary stream, straining to void, urinary intermittency or hesitancy, splitting of the voiding stream, terminal dribbling. ENDOCRINOLOGIC: Denies polyuria, polydipsia, polyphagia or heat/cold intolerances. HEMATOLOGIC: Denies thrombophilia/previous clots, or coagulopathy/bleeding disorders. ONCOLOGIC: Denies personal history of malignancy. DERMATOLOGIC: Denies rashes or pruritus. PSYCHIATRIC: Denies any suicidal or homicidal ideation. Denies hallucinations. PHYSICAL EXAM GENERAL APPEARANCE: The patient is awake, alert, and oriented, in no acute cardiopulmonary distress. NEUROLOGICAL: Cranial nerves II-XII grossly intact. Motor is 5/5 in bilateral upper and lower extremities proximal to distal. No sensory deficits. HEENT: Face is symmetric. Pupils are equal and reactive. Extraocular movements are intact. NECK: Supple. No JVD. No thyromegaly. No submental, submandibular, pre- /postauricular, occipital or supraclavicular lymphadenopathy. CHEST: Normal chest expansion. No Telemetry. LUNGS: Absence of any rales, rhonchi or any wheezing. CARDIOVASCULAR: Regular. S1 and S2 normal. No appreciable rubs, murmurs or gallops. ABDOMEN: Soft, nondistended. Mild tenderness to palpation of the lower abdominal quadrant : Deferred. No [place]. EXTREMITIES: Non-edematous and not cyanotic. No clubbing. Good capillary refill. SKIN: No skin breakdown. Vital Signs (last 8hr) Date Time Temp Pulse Resp B/P (MAP) Pulse Ox O2 Delivery O2 Flow Rate FiO2 09/12/24 12:26 97.9 76 16 151/56 98 Room Air* 0 21 LABS: Laboratory: Test 09/12/24 11:43 09/12/24 08:55 09/11/24 11:48 09/11/24 04:02 Range/Units Whole Blood Glucose 158 #H 70-110 MG/DL White Blood Count 5.8 4.8-10.8 K/uL Red Blood Count 4.42 4.00-5.50 MIL/uL Hemoglobin 12.8 12.0-16.0 g/dL Hematocrit 39.8 36-48 % Mean Corpuscular Volume 90.0 79-99 fL Mean Corpuscular Hemoglobin 29.0 27.0-33.0 pg Mean Corpuscular Hemoglobin Concent 32.2 32.0-36.0 g/dL Red Cell Distribution Width 12.6 11.0-15.5 % Platelet Count 151 130-400 K/uL Mean Platelet Volume 9.6 7.5-10.5 fL Immature Granulocyte % (Auto) 0.3 0-1 % Neutrophils (%) (Auto) 57.5 40.0-77.0 % Lymphocytes (%) (Auto) 34.4 21.0-51.0 % Monocytes (%) (Auto) 5.9 3.0-13.0 % Eosinophils (%) (Auto) 1.6 0.0-8.0 % Basophils (%) (Auto) 0.3 0.0-5.0 % Neutrophils # (Auto) 3.3 1.8-7.7 K/uL Lymphocytes # (Auto) 2.0 1.0-4.8 K/uL Monocytes # (Auto) 0.3 0.1-1.0 K/uL Eosinophils # (Auto) 0.09 0.00-0.70 K/uL Basophils # (Auto) 0.02 0.00-0.20 K/uL Absolute Immature Granulocyte (auto 0.02 0-1 K/uL Nucleated Red Blood Cells 0.0 0.0-0.19 % Sodium Level 146 H 136-145 mmol/L Potassium Level 3.6 3.5-5.1 mmol/L Chloride Level 108 101-111 mmol/L Carbon Dioxide Level 32 21-32 mmol/L Blood Urea Nitrogen 2 L 7-18 mg/dL Creatinine 0.4 L 0.5-1.0 mg/dL Glomerular Filtration Rate Calc 109 >90 mL/min Random Glucose 129 H 70-105 mg/dL Total Calcium 9.0 8.5-10.1 mg/dL Magnesium Level 1.40 L 1.80-2.40 mg/dL Ferritin 110 15-150 ng/mL Total Bilirubin 0.2 0.2-1.0 mg/dL Aspartate Amino Transf (AST/SGOT) 30 10-37 U/L Alanine Aminotransferase (ALT/SGPT) 72 12-78 U/L Alkaline Phosphatase 73 50-136 U/L Total Protein 6.8 6.0-8.3 g/dL Albumin 3.2 L 3.5-5.0 g/dL Erythrocyte Sedimentation Rate 5 0-30 MM/HR Prothrombin Time 10.3 9.6-11.6 SEC Prothromb Time International Ratio 0.97 0.85-1.15 Activated Partial Thromboplast Time 25.7 L 26.3-35.5 SEC Urine Color LIGHT-YELLOW YELLOW Urine Appearance CLOUDY H CLEAR Urine pH 5.5 5.0-8.0 Urine Specific [place] 1.014 1.001-1.031 Urine Protein NEGATIVE NEGATIVE mg/dL Urine Glucose (UA) NEGATIVE NEGATIVE mg/dL Urine Ketones NEGATIVE NEGATIVE mg/dL Urine Occult Blood +- (TRACE) H NEGATIVE Urine Nitrate NEGATIVE NEGATIVE Urine Bilirubin NEGATIVE NEGATIVE mg/dL Urine Urobilinogen 0.2 0.2-1.0 mg/dL Urine Leukocyte Esterase 500 H NEGATIVE Dave/uL Urine RBC 2-5 H 0-1 /HPF Urine WBC >100 H 0-1 /HPF Urine WBC Clumps (Auto) FEW 0-1 /HPF Urine Squamous Epithelial Cells RARE 0-2 /HPF Urine Bacteria MOD None Seen /HPF Test 09/11/24 03:10 Range/Units Lactic Acid Level 2.0 0.8-2.5 mmol/L Direct Bilirubin 0.1 0.0-0.3 mg/dL C-Reactive Protein, Quantitative 2.10 0.5-3.0 mg/L Lipase 58 16-77 U/L Procalcitonin < 0.05 L 0.05-0.5 ng/mL Current Medications Medications (Trade) Dose Ordered Sig/Norma Route PRN Reason Start Time Stop Time Status Last Admin Dose Admin Acetaminophen (TYLenol 325MG TAB) 650 mg Q12H PRN PO MILD PAIN (1-3) 09/11/24 10:30 10/11/24 10:29 09/11/24 18:09 650 MG Amlodipine Besylate (NorvASC 5MG TAB) 5 mg BID PO 09/12/24 09:00 10/12/24 08:59 09/12/24 09:13 5 MG Amlodipine Besylate (NorvASC 5MG TAB) 5 mg Q24H PO 09/11/24 10:30 09/12/24 07:07 DC 09/11/24 10:35 5 MG Atorvastatin Calcium (LIPItor 40MG) 40 mg HS PO 09/12/24 21:00 10/12/24 20:59 Ceftriaxone Sodium (ROCEphine 1G INJ) 1 gm BID IVPB 3/10/25 21:00 09/21/24 20:59 09/12/24 09:14 1 GM Enoxaparin Sodium (Lovenox) 40 mg DAILY SQ 09/12/24 09:00 10/12/24 08:59 09/12/24 09:13 40 MG Gabapentin (NEURontin 300 MG CAP) 300 mg TID PO 09/12/24 09:00 10/12/24 08:59 09/12/24 14:07 300 MG Hydralazine HCl (APRESOLine 20MG INJ) 5 mg Q6H PRN IV ADMINISTER FOR SBP > 160 09/11/24 11:00 10/11/24 10:59 Insulin Human Regular (humuLIN R 100 UNIT/ML 3ML) INSULIN SLIDING SCAL... ACHS SQ 09/11/24 11:30 10/11/24 11:29 Lactated Ringer's 1,000 ml @ 75 mls/hr [id number] IV 09/11/24 10:30 10/11/24 10:29 09/12/24 14:07 75 MLS/HR Loperamide HCl (Imodium) 2 mg Q8H PRN PO significant diarrhea 09/11/24 15:30 10/11/24 15:29 Losartan Potassium (CozAAR 50 mg TAB) 50 mg BID PO 09/11/24 12:00 10/11/24 11:59 09/12/24 09:13 50 MG Magnesium Sulfate 50 ml @ 0 mls/hr PROTOCOL IV 09/12/24 12:00 10/12/24 11:59 Metoprolol Tartrate (loprESSOR) 25 mg Q12H PO 09/11/24 10:30 10/11/24 10:29 09/12/24 10:28 25 MG Morphine Sulfate (morPHINE 2MG SYG) 2 mg Q6H PRN IVP SEVERE PAIN (7-10) 09/11/24 21:00 09/18/24 20:59 Ondansetron HCl (zoFRAN 4MG INJ) 4 mg Q6H PRN IVP NAUSEA/VOMITING 09/11/24 21:00 10/11/24 20:59 09/11/24 21:07 4 MG Phenytoin Sodium (Dilantin 100mg Er Cap) 400 mg Q24H PO 09/11/24 10:30 10/11/24 10:29 09/12/24 10:31 400 MG DIAGNOSTICS / RADIOLOGY: PROCEDURE: HEAD WO - CT HEAD/BRAIN W/O CONTRAST Exam Type: CT HEAD/BRAIN W/O CONTRAST Clinical Information: HEADACHE, HX OF MIGRAINES FOR SEVERAL MONTHS Comparison: None CT Dose Index (CTDI): 57.33 mGy Dose Length Product (DLP): 956.79 total mGy-cm Findings: The examination is unremarkable. Maharaj-white matter junction is preserved. No intra or extra axial lesions or fluid collections are seen. Specifically, maharaj and white matter are normal in signal characteristics with normal caliber of ventricles and periventricular cisterns with no evidence of intra or or extra-axial hemorrhage, lacunar infarct, or major territorial infarct, mass, or other abnormality. There are no infarcts. There are no hemorrhages. Periventricular white matter locations are preserved. The orbital contents and structures of the posterior fossa are intact. Impression: Normal CT of the head. ASSESSMENT: Acute gastroenteritis, POA [rule out infectious causes] Acute urinary tract infection, POA, Gram-negative rods on culture Acute dehydration with hypovolemia, POA Underlying history of hypertension, POA Hyperlipidemia, POA Type 2 diabetes mellitus, POA Obesity, POA Chronic hepatitis since 2020, POA Underlying history of seizure disorder on outpatient phenytoin, POA PLAN: Acute gastroenteritis, POA [rule out infectious causes] Continue telemetry monitoring Continue fluids LR at a rate of 75 mL/hour Monitor electrolytes and replace them accordingly We will start the patient on GI soft, lactose-free diet Follow up on stool GI PCR panel, culture, C diff lab test results Acute urinary tract infection, POA, Gram-negative rods on culture Preliminary Urine culture resulted in Gram-negative rods Continue ceftriaxone 1 g b.i.d. as per ID consult recommendations Follow up on urine culture results Underlying history of hypertension, POA, Hyperlipidemia, POA, Type 2 diabetes mellitus, POA , Obesity, POA, seizure disorder on outpatient phenytoin POA Continue home medications atorvastatin 40 mg, amlodipine5 mg b.i.d. metoprolol [id number] mg b.i.d, phenytoin 400 mg daily Continue,losartan 50 mg b.i.d. Chronic hepatitis since 2020, POA Follow up on hepatitis panel results Continue DVT prophylaxis Lovenox 40 mg We will start GI prophylaxis famotidine 20 mg IV b.i.d. We will repeat all the labs in the morning ATTESTATION BY PHYSICIAN I have seen and examined the patient. I reviewed the documentation, medical deci mikhail making, and treatment plan as noted by the resident above. I agree with the findings and plan of care. Kraig Mcbirde MD, PRIYANKA MD Sep 12, 2024 16:36
[2024-09-12 19:38] LABS: HEPATITIS B CORE AB TOTAL Non-Reactive (Nonreactive)
--- NOTE | 2024-09-12 19:38 | PN ---
INFECTIOUS DISEASE FOLLOWUP NOTE DATE OF SERVICE: 09/12/2024 SUBJECTIVE: The patient is seen. No fever, no chills. No bleeding tendency. Denies chest pain. No palpitation or orthopnea. Abdominal pain has resolved. Diarrhea is also resolved. Tolerating antibiotic. No dysuria or hematuria. PHYSICAL EXAMINATION: VITAL SIGNS: Temperature 98.7. EYES: No icterus. Pupils equal and reactive. HENT: No oral lesions seen. Moist oral mucosa. NECK: Supple, no JVD, no thyromegaly. LUNGS: Good air entry. No rales, no rhonchi. CARDIOVASCULAR: S1, S2 regular. No murmur heard. ABDOMEN: Obese, soft, nontender. Bowel sounds are present. CENTRAL NERVOUS SYSTEM: Awake, alert and oriented x 3. No focal deficits. SKIN: No rashes, no itchiness. LYMPHATIC: No peripheral lymphadenopathy. BACK: No deformity, no pressure ulcer. MUSCULOSKELETAL: No joint swelling, erythema or tenderness. LABORATORY DATA: Urine culture growing gram-negative gael. ASSESSMENT: A 64-year-old female presenting with fever. Current problems include: * Gram-negative sepsis. * Urinary tract infection. * Noninfectious gastroenteritis. * Diabetes mellitus. * Obesity. PLAN: * Continue ceftriaxone. * Follow up cultures. * Continue pain management. * Continue antidiabetic. * Continue nutritional support. * Monitor electrolytes. * The patient will follow up closely. TID: [id number] RECEIPT: [id number]
[2024-09-12 19:46] LABS: HEPATITIS B SURFACE ANTIBODY Negative (Reactive); HEPATITIS B SURFACE ANTIGEN Non-Reactive (Nonreactive); HEPATITIS C ANTIBODY Non-Reactive (Nonreactive)
--- NOTE | 2024-09-12 20:57 | NUR ---
REPORT GIVEN TO TEVIN MTZ
[2024-09-12] MEDS: atorVAStatin 40 MG TABLET PO SCH (21:14)
[2024-09-12] MEDS: MAGNESIUM 2GM PREMIX 50ML 50 ML IV SCH (21:15)
[2024-09-12] MEDS: FAMOTIDINE 20MG VIAL IV SCH (21:15)
[2024-09-12 21:40] VITALS: BP 159/79; PULSE 66; RESP 18; TEMP 97.9
[2024-09-12 21:45] VITALS: O2SAT 97
[2024-09-13 00:03] VITALS: BP 133/69; PULSE 62; RESP 17; TEMP 98.2
[2024-09-13 03:41] VITALS: BP 138/50; PULSE 64; RESP 18; TEMP 98
[2024-09-13 06:13] LABS: BASOPHILS # (AUTO) 0.02 K/uL (0.00-0.20); BASOPHILS % (AUTO) 0.4 % (0.0-5.0); EOSINOPHILS # (AUTO) 0.13 K/uL (0.00-0.70); EOSINOPHILS % (AUTO) 2.6 % (0.0-8.0); IMMATURE GRANULOCYTE ABSOLUTE 0.02 K/uL (0-1); LYMPHOCYTES # (AUTO) 2.1 K/uL (1.0-4.8); LYMPHOCYTES % (AUTO) 41.3 % (21.0-51.0); MEAN CORPUSCULAR HEMOGLOBIN 29.1 pg (27.0-33.0); MEAN CORPUSCULAR VOLUME 88.3 fL (79-99); MONOCYTES # (AUTO) 0.4 K/uL (0.1-1.0); MONOCYTES % (AUTO) 8.5 % (3.0-13.0); NEUTROPHILS # (AUTO) 2.4 K/uL (1.8-7.7); NEUTROPHILS % (AUTO) 46.8 % (40.0-77.0); PLATELET COUNT (AUTO) 151 K/uL (130-400); RED BLOOD CELL COUNT(AUTO) 4.19 MIL/uL (4.00-5.50); RED CELL DISTRIBUTION WIDTH 12.7 % (11.0-15.5); WHITE BLOOD COUNT (AUTO) 5.1 K/uL (4.8-10.8)
[2024-09-13 06:30] LABS: CREATININE 0.4 mg/dL (0.5-1.0); MAGNESIUM 1.8 mg/dL (1.80-2.40); POTASSIUM 3.1 mmol/L (3.5-5.1)
[2024-09-13] MEDS ORDERED: PoTASSium chloRIDE 20MEQ/100ML 100 ML IV PRN (07:00)
[2024-09-13] MEDS: PoTASSium chl 10% ELIXIR 20MEQ 20 MEQ/15 ML UDCUP PO PRN (07:01)
[2024-09-13] MEDS: PoTASSium chloRIDE 20MEQ ER 20 MEQ ERTAB PO PRN (07:01)
[2024-09-13 08:00] VITALS: BP 154/76; PULSE 67; RESP 18; TEMP 98.2; O2SAT 97
--- NOTE | 2024-09-13 11:32 | PN ---
INFECTIOUS DISEASE PROGRESS NOTE Date of Service: Sep 13, 2024 SUBJECTIVE: Patient was seen and examined at bedside in room 306. Patient is awake, alert and oriented x3. Final urine culture results came back positive for E coli. Patient has been receiving ceftriaxone 1 g IV twice a day. No fever this morning, temperature is 98.2 and the WBC is 5.1. From Infectious Disease standpoint patient can be discharged to home on cephalexin 500 mg p.o. t.i.d. x 7 days. Prescription was written. PHYSICAL EXAM EYES: Anicteric. Pupils equal and reactive. HENT: No oral thrush seen, moist Oral mucosa NECK: Supple, no JVD or thyromegaly. LUNGS: Good air entry. No rales, no rhonchi. CARDIOVASCULAR: S1, S2 regular. No murmur heard. ABDOMEN: Soft, non tender, bowel sounds present, no organomegaly CENTRAL NERVOUS SYSTEM: Awake, alert, oriented x 3. No focal deficits. SKIN: No rashes, no swelling. LYMPHATICS: No peripheral lymphadenopathy MUSCULOSKELETAL: No joint swelling, erythema or tenderness. EXTREMITIES: No cyanosis or clubbing BACK: No deformity, no pressure ulcer. GENITOURINARY: No dysuria or hematuria Vital Sign (Last 12 Hours) 09/13/24 09/13/24 09/13/24 00:03 03:41 08:00 Temp 98.2 98.1 98.2 Pulse 62 64 67 Resp 17 18 18 B/P (MAP) 133/69 138/50 154/76 Pulse Ox 93 97 97 O2 Delivery Room Air Room Air Room Air Intake & Output (last 24hrs) 09/12/24 09/12/24 09/13/24 15:00 23:00 07:00 Intake Total 120 ml Balance 120 ml LABS: Laboratory: Test 09/13/24 05:32 09/13/24 05:15 09/12/24 08:55 09/11/24 11:48 Range/Units Whole Blood Glucose 120 H 70-110 MG/DL White Blood Count 5.1 4.8-10.8 K/uL Red Blood Count 4.19 4.00-5.50 MIL/uL Hemoglobin 12.2 12.0-16.0 g/dL Hematocrit 37.0 36-48 % Mean Corpuscular Volume 88.3 79-99 fL Mean Corpuscular Hemoglobin 29.1 27.0-33.0 pg Mean Corpuscular Hemoglobin Concent 33.0 32.0-36.0 g/dL Red Cell Distribution Width 12.7 11.0-15.5 % Platelet Count 151 130-400 K/uL Mean Platelet Volume 10.1 7.5-10.5 fL Immature Granulocyte % (Auto) 0.4 0-1 % Neutrophils (%) (Auto) 46.8 40.0-77.0 % Lymphocytes (%) (Auto) 41.3 21.0-51.0 % Monocytes (%) (Auto) 8.5 3.0-13.0 % Eosinophils (%) (Auto) 2.6 0.0-8.0 % Basophils (%) (Auto) 0.4 0.0-5.0 % Neutrophils # (Auto) 2.4 1.8-7.7 K/uL Lymphocytes # (Auto) 2.1 1.0-4.8 K/uL Monocytes # (Auto) 0.4 0.1-1.0 K/uL Eosinophils # (Auto) 0.13 0.00-0.70 K/uL Basophils # (Auto) 0.02 0.00-0.20 K/uL Absolute Immature Granulocyte (auto 0.02 0-1 K/uL Nucleated Red Blood Cells 0.0 0.0-0.19 % Sodium Level 145 136-145 mmol/L Potassium Level 3.1 L 3.5-5.1 mmol/L Chloride Level 109 101-111 mmol/L Carbon Dioxide Level 29 21-32 mmol/L Blood Urea Nitrogen 6 L 7-18 mg/dL Creatinine 0.4 L 0.5-1.0 mg/dL Glomerular Filtration Rate Calc 109 >90 mL/min Random Glucose 122 H 70-105 mg/dL Total Calcium 9.0 8.5-10.1 mg/dL Magnesium Level 1.80 1.80-2.40 mg/dL Ferritin 110 15-150 ng/mL Total Bilirubin 0.2 0.2-1.0 mg/dL Aspartate Amino Transf (AST/SGOT) 30 10-37 U/L Alanine Aminotransferase (ALT/SGPT) 72 12-78 U/L Alkaline Phosphatase 73 50-136 U/L Total Protein 6.8 6.0-8.3 g/dL Albumin 3.2 L 3.5-5.0 g/dL Anti-Nuclear Antibody Screen Negative Negative DESMOND-1 Antibody SS-A/Ro Antibody SS-B/La Antibody Sm (Cloud) IgG Antibody, Quant TRIM MASTER OPERATOR IgG Antibody, Quantitative Scl-70 (Scleroderma) Antibody Anti-Double Strand DNA Antibody Anti-Centromere IgG Antibody Hepatitis B Surface Antigen. Non-Reactive Nonreactive Hepatitis B Surface Antibody. Negative L Reactive Hepatitis B Core Total Antibody. Non-Reactive Nonreactive Hepatitis C Antibody Non-Reactive Nonreactive Erythrocyte Sedimentation Rate 5 0-30 MM/HR Prothrombin Time 10.3 9.6-11.6 SEC Prothromb Time International Ratio 0.97 0.85-1.15 Activated Partial Thromboplast Time 25.7 L 26.3-35.5 SEC DIAGNOSTICS / RADIOLOGY: PATIENT: NOELLE SEPULVEDA ACCT: [id number] LOC: [facility] U: [id number] AGE/SX: 64/F ROOM: [facility] RE09/11/[address]: ALEXIA URBAN MD : 1960 BED: 1 DIS: STATUS: ADM IN TLOC: SPEC: [id number] KEY: 09/11/24 STATUS: COMP REQ: [id number] RECD: 09/11/[address]: ARMANDO JUAREZ SOURCE: [facility] ENTR: 09/11/[address]: JOSELUIS DE LEON DO [facility]: CLEAN CAT NONE ORDERED: AERO ID & SENS Procedure Result [place] Date-Time ---- -------- AEROBIC ID & SENSITIVITIES Final 09/13/24-600 MRL COLONY DESCRIPTION: DAY 1: COLONY COUNT: >100,000 CFU/ML GRAM NEGATIVE RODS IDENTIFICATION AND SENSITIVITY TO FOLLOW ESCHERICHIA COLI E COLI M.I.C. RX --------- ---- AMPICILLIN <=8 S AZTREONAM <=4 S CEFAZOLIN <=2 S CEFTAZIDIME/AVIBACTAM <=8 S GENTAMICIN <=2 S LEVOFLOXACIN <=0.5 S NITROFURANTOIN <=32 S MEROPENEM <=1 S PIPERACILLIN/TAZOBACTAM <=8 S TRIMETHOPRIM/SUFLAMETHOXAZOLE <=2/38 S ASSESSMENT: Urinary tract infection with E coli. Noninfectious gastroenteritis. Diabetes mellitus. PLAN: From Infectious Disease standpoint patient can be discharged to home on cephalexin 500 mg t.i.d. for 7 days. Prescription was written. This case was reviewed and discussed with my supervising physician and the above assessment and plan was formulated and agreed upon. ATTESTATION BY PHYSICIAN I have seen and examined the patient. I reviewed the documentation, medical decision making, and treatment plan as noted by the mid-level provider above. I agree with the findings and plan of care. ELENA GARCIA MD, MIRTA L [facility] Sep 13, 2024 11:32
[2024-09-13 12:00] VITALS: BP 159/66; PULSE 73; RESP 20; TEMP 98.2
--- NOTE | 2024-09-13 14:15 | DS ---
Discharge Summary Hospital Course Summary: 64-year-old female with underlying history of obesity, diabetes, hypertension, seizure disorder who presented to the ER for further evaluation of abdominal pain and multiple episodes of watery diarrhea. [place] [address] with neutrophilia. BMP remarkable for sodium 139, potassium 3.6, creatinine 0.5, blood glucose of 133 lactic acid of 2.0, AST of 50, ALT of 92. Urinalysis showed leukocyte esterase positive, pyuria, and bacteriuria. Patient admitted for further management of infectious gastroenteritis, developing urinary tract infection, and associated dehydration. During the course of the hospitalization patient admitted to the medical floor, supportive care with IV fluids, as well as empiric IV antibiotics done. Results of urine culture positive for E coli sensitive to multiple antibiotics. Today the patient is alert oriented x3, hemodynamically stable, denies chest pain, no shortness a breath, no nausea, no vomiting, no abdominal pain, no diarrhea, tolerating diet. PHYSICAL EXAM GENERAL APPEARANCE: The patient is awake, alert, and oriented, in no acute cardiopulmonary distress. NEUROLOGICAL: Cranial nerves II-XII grossly intact. Motor is 5/5 in bilateral upper and lower extremities proximal to distal. No sensory deficits. HEENT: Face is symmetric. Pupils are equal and reactive. Extraocular movements are intact. NECK: Supple. No JVD. No thyromegaly. No submental, submandibular, pre- /postauricular, occipital or supraclavicular lymphadenopathy. CHEST: Normal chest expansion. No Telemetry. LUNGS: Absence of any rales, rhonchi or any wheezing. CARDIOVASCULAR: Regular. S1 and S2 normal. No appreciable rubs, murmurs or gallops. ABDOMEN: Soft, nondistended. Mild tenderness to palpation of the lower abdominal quadrant : Deferred. No [place]. EXTREMITIES: Non-edematous and not cyanotic. No clubbing. Good capillary refill. SKIN: No skin breakdown. Plan for the patient to be discharged home today. Assistant Warehouse Manager(s): Infectious disease Assessment/Plan: Final diagnosis Acute infectious gastroenteritis, resolved, POA Acute urinary tract infection, secondary to E coli, POA Acute dehydration with hypovolemia, POA Underlying history of hypertension, POA Hyperlipidemia, POA Type 2 diabetes mellitus, POA Obesity, POA Chronic hepatitis since 2020, POA Underlying history of seizure disorder on outpatient phenytoin, POA Discharge Instructions: The patient to follow up with primary care physician as an outpatient and to return to the hospital if condition changes. Patient agreed with plan and understood the information provided. Prescription for Keflex 500 mg p.o. t.i.d. for seven days provided in a written prescription by Infectious Disease. Home Medications: Active Scripts Ascorbic Acid (Vitamin C) 1,000 Mg Tablet, 1000 MG PO DAILY for 7 Days, #7 TAB 0 Refills Prov:TOYA GALEAS MD 07/20/23 Reported Medications Atorvastatin Calcium (LIPITOR) 80 Mg Tablet, 1 TAB PO HS for 30 Days, #30 TAB 0 Refills 09/11/24 Metformin HCl (Metformin HCl) 500 Mg Tablet, 1 TAB PO BID for 30 Days, #60 TAB 0 Refills 09/11/24 Cholecalciferol (Vitamin D3) (Vitamin D3) 50 Mcg (2000 Unit) Tab.chew, 50 MCG PO DAILY, TAB.CHEW 07/18/23 Semaglutide (Ozempic) 1 Mg/0.75 Ml (4 Mg/3 Ml) Pen.injctr, 5 MG SQ WEEKLY 07/18/23 Losartan Potassium (Losartan Potassium) 100 Mg Tablet, 100 MG PO DAILY, TAB 07/18/23 Amlodipine Besylate (Amlodipine Besylate) 5 Mg Tablet, 5 MG PO BID, TAB 07/18/23 Atorvastatin Calcium (LIPITOR) 80 Mg Tablet, 80 MG PO HS, TAB 06/23/21 Gabapentin (Neurontin) 300 Mg Capsule, 300 MG PO TID, CAP 06/23/21 Phenytoin Sodium Extended (Phenytoin Sodium Extended) 100 Mg Capsule, 400 MG PO DAILY, CAP 06/23/21 Metoprolol Tartrate (Metoprolol Tartrate) 25 Mg Tablet, 25 MG PO BID, TAB 06/23/21 Discontinued Reported Medications Dextrose (Glucose) 4 Gram Tab.chew, 15 GM PO AD, TAB.CHEW 07/18/23 Amitriptyline HCl (Amitriptyline HCl) 25 Mg Tablet, 75 MG PO HS, TAB 07/18/23 Aspirin (Aspirin) 81 Mg Tab.chew, 81 MG PO DAILY, TAB.CHEW 06/23/21 Discontinued Scripts Ibuprofen (Ibuprofen) 600 Mg Tablet, 600 MG PO Q6H PRN for PAIN, #15 TAB Prov:DESHAWN FRAZIER MD 12/12/23 Hydrocodone/Acetaminophen (Hydrocodon-Acetaminophen 5-325) 5 Mg-325 Mg Tablet, 1 EACH PO Q6H for pain, #16 TAB 0 Refills Prov:DESHAWN FRAZIER MD 12/12/23 Cefdinir (Cefdinir) 300 Mg Capsule, 300 MG PO BID for 5 Days, #10 CAP 0 Refills Prov:TOYA GALEAS MD 07/20/23 Azithromycin (Azithromycin) 500 Mg Tablet, 500 MG PO DAILY for 3 Days, #3 TAB 0 Refills Prov:TOYA GALEAS MD 07/20/23 Time spent arranging discharge: 31-60 minutes TOYA GALEAS MD Sep 13, 2024 14:15
[2024-09-13] MEDS: PoTASSium chloRIDE 20MEQ ER 20 MEQ ERTAB PO ONE (14:32)
[2024-09-16 01:09] LABS: C DIFFICILE TOXIN A/B Not Detected (Not Detected); ENTEROAGGREGATIVE ECOLI Not Detected (Not Detected); GIARDIA LAMBLIA Not Detected (Not Detected); PLESIOMONAS SHIGELOIDES Not Detected (Not Detected); SAPOVIRUS Not Detected (Not Detected); SHIGELLA/ENTEROINVASIVE E COLI Not Detected (Not Detected); VIBRIO Not Detected (Not Detected); VIBRIO CHOLERAE Not Detected (Not Detected)
== END 2024-09-13 16:45 | disposition home or self-care (01) ==
LOC: EDH 01:45 → INTOOBSV 10:19 → EDHIP 10:19 → 3BH 09-12 20:14
PROVIDERS: ADMIT Internal Medicine; ATTEND Internal Medicine
DX: N39.0 Urinary tract infection, site not specified (principal); B96.20 Unspecified Escherichia coli [E. coli] as the cause of diseases classified elsewhere; E86.0 Dehydration; E86.1 Hypovolemia; E66.01 Morbid (severe) obesity due to excess calories; K52.9 Noninfective gastroenteritis and colitis, unspecified; I10 Essential (primary) hypertension; E78.5 Hyperlipidemia, unspecified; K73.9 Chronic hepatitis, unspecified; G40.909 Epilepsy, unspecified, not intractable, without status epilepticus; E11.40 Type 2 diabetes mellitus with diabetic neuropathy, unspecified; Z79.899 Other long term (current) drug therapy; Z90.710 Acquired absence of both cervix and uterus; Z88.0 Allergy status to penicillin; Z68.31 Body mass index [BMI] 31.0-31.9, adult
CPT/HCPCS: 99285; 96361 ×4; 70450; 96365; 96375 ×3; 96376 ×2; 80076; 83735 ×3; 80048 ×2; 83690; 85025 ×3; 85610; 85730; 85651; 87086 ×2; 87186; 82948 ×9; 83605; 86140; 81001; 36415 ×3; 74176; 84145; 96366 ×2; 96372 ×2; 96368; 80053; 82728; 86803; 82390; 86038; 86706; 87340; 86704; 86376; 86015; 86381; 87507; J1885; J0696 ×5; J2405 ×2; J3475 ×2; J3490 ×2; J1650 ×2; G0378; 86215; 86235; 96374

== ENCOUNTER 2024-10-29 11:46 | Emergency (ER) | payer OTHER ==
[~2024-10-29] VITALS: Ht 160 cm; Wt 81.2 kg
[~2024-10-29 11:46] MED LIST changes: -AMIT25TA9 PO; -ASPI-1197 PO; -AZIT500T4 PO; -CEFD300C3 PO; -HYDR-4060 PO; -IBUP-2070 PO; +METF-444 PO; -[UNRECOGNIZED DRUG - CODE] PO
--- NOTE | 2024-10-29 12:07 | ERN ---
ED Note History of Present Illness Stated Complaint: ABDOMINAL PAIN Chief Complaint: Abdominal Pain Time Seen by MD: 11:48 Dictation: Patient is a 64-year-old female coming in today with complaints of left lower quadrant pain tenderness with constipation for the last four days. She has no fever no chills no nausea vomiting. No diarrhea. States she took some milk of magnesia today and had a large hard stool. She states normally she has bowel movements two to 3 times a day. States she does have a history of kidney stones. Allergies: Coded Allergies: metformin (Verified Allergy, Unknown, 07/18/23) Penicillins (Verified Adverse Reaction, Mild, RASH, 07/18/23) No anaphylaxis. Patient takes amoxicillin. Home Meds Active Scripts Dicyclomine HCl (Bentyl) 20 Mg Tab, 20 MG PO Q6HPRN PRN for ABDOMINAL PAIN/CRAMPS, #20 TAB Prov:MARYCARMEN CHEN NP 10/29/24 Metronidazole (Metronidazole) 500 Mg Tablet, 1 TAB PO TID for 7 Days, #21 TAB 0 Refills Prov:MARYCARMEN CHEN NP 10/29/24 Ascorbic Acid (Vitamin C) 1,000 Mg Tablet, 1000 MG PO DAILY for 7 Days, #7 TAB 0 Refills Prov:TOYA GALEAS MD 07/20/23 Reported Medications Semaglutide (Ozempic) 2 Mg/0.75 Ml (8 Mg/3 Ml) Pen.injctr, 2 MG SQ QWEEK 10/29/24 Atorvastatin Calcium (LIPITOR) 80 Mg Tablet, 1 TAB PO HS for 30 Days, #30 TAB 0 Refills 09/11/24 Metformin HCl (Metformin HCl) 500 Mg Tablet, 1 TAB PO BID for 30 Days, #60 TAB 0 Refills 09/11/24 Cholecalciferol (Vitamin D3) (Vitamin D3) 50 Mcg (2000 Unit) Tab.chew, 50 MCG PO DAILY, TAB.CHEW 07/18/23 Semaglutide (Ozempic) 1 Mg/0.75 Ml (4 Mg/3 Ml) Pen.injctr, 5 MG SQ WEEKLY 07/18/23 Losartan Potassium (Losartan Potassium) 100 Mg Tablet, 100 MG PO DAILY, TAB 07/18/23 Amlodipine Besylate (Amlodipine Besylate) 5 Mg Tablet, 5 MG PO BID, TAB 07/18/23 Atorvastatin Calcium (LIPITOR) 80 Mg Tablet, 80 MG PO HS, TAB 06/23/21 Gabapentin (Neurontin) 300 Mg Capsule, 300 MG PO TID, CAP 06/23/21 Phenytoin Sodium Extended (Phenytoin Sodium Extended) 100 Mg Capsule, 400 MG PO DAILY, CAP 06/23/21 Metoprolol Tartrate (Metoprolol Tartrate) 25 Mg Tablet, 25 MG PO BID, TAB 06/23/21 Past Medical History Past Medical History: Diabetes-Type II, High Cholesterol, Hypertension Additional Past Medical Hx: NEUROPATHY, morbidly obese Surgical History: Hysterectomy Family History: Negative Social History: Lives with family History: Not Applicable RN Note Reviewed/Agreed w/PFSH: Yes Review of System Dictation CONSTITUTIONAL: NEGATIVE EXCEPT FOR HPI HEAD/FACE: NEGATIVE EXCEPT FOR HPI EENT: NEGATIVE EXCEPT FOR HPI RESPIRATORY: NEGATIVE EXCEPT FOR HPI GASTROINTESTINAL/ABDOMINAL: NEGATIVE EXCEPT FOR HPI BLOATING/CONSTIPATION/LEFT LOWER QUADRANT TENDERNESS GENITOURINARY: NEGATIVE EXCEPT FOR HPI MUSCULOSKELETAL: NEGATIVE EXCEPT FOR HPI INTEGUMENTARY: NEGATIVE EXCEPT FOR HPI NEUROLOGICAL/PSYCH: NEGATIVE EXCEPT FOR HPI HEMATOLOGIC/LYMPHATIC: NEGATIVE EXCEPT FOR HPI ALL SYSTEMS NEGATIVE, EXCEPT NOTED ABOVE. 13 POINT REVIEW OF SYSTEMS ASSESSED AND ALL NEGATIVE EXCEPT FOR ABOVE. Initial Vital Sign VS Vital Signs Date Time Temp Pulse Resp B/P (MAP) Pulse Ox O2 Delivery O2 Flow Rate FiO2 10/29/24 12:01 97.2 74 16 113/70 97 Room Air 0 10/29/24 12:50 21 Physical Exam Dictation VITAL SIGNS REVIEWED GENERAL APPEARANCE: ALERT, ORIENTED X 3, MILD ACUTE DISTRESS, WELL DEVELOPED, NOURISHED. OBESE HEAD AND FACE: NON-TRAUMATIC. EYES: PERRL, PINK CONJUNCTIVAS, EYELID NO TRAUMA, ANTERIOR CHAMBER WITH ARCUS SENILIS. EARS: PINNAS INTACT AND NO SIGNS OF TRAUMA OR ERYTHEMA EAR CANALS CLEAR AND NO DISCHARGE TM NO ERYTHEMA NOSE: NO DISCHARGE, NO BLEEDING. OROPHARYNX: MOUTH NORMAL, TONGUE PINK, PHARYNX CLEAR,NO ERYTHEMA, TONSILS NO EXUDATES, NO ABSCESSES NOTED, MUCOUS MEMBRANE MOIST NECK: SUPPLE, NON-TENDER, NO THYROMEGALY, NO MASSES, NO JVD, NO BRUITS BREAST:DEFERRED CHEST:NO TENDERNESS, NO CREPITUS, NO PARADOXICAL MOVEMENT, NO RETRACTIONS LUNGS:CLEAR, WELL-VENTILATED, SYMMETRIC, NO RALES, NO WHEEZING, NO RHONCHI, NO STRIDOR, GOOD BREATH SOUNDS BILATERALLY HEART: REGULAR RATE, REGULAR RHYTHM, NO MURMUR, NO GALLOPS VASCULAR: NO PERIPHERAL EDEMA, ABDOMEN: SOFT, POSITIVE BOWEL SOUNDS, NONDISTENDED, NO GUARDING, LEFT LOWER QUADRANT TENDERNESS, NO REBOUND NEGATIVE CVAT, NO REBOUND, NO MASSES NO HEPATOMEGALY, NO SPLENOMEGALY, NO FERGUSON'S SIGN, NO HERNIAS. RECTAL: DEFERRED GENITAL: DEFERRED NEUROLOGICAL: NORMAL SPEECH, MOTOR FUNCTION INTACT, SENSORY FUNCTION INTACT MUSCULOSKELETAL: NECK NONTENDER, FULL RANGE OF MOTION, BACK NONTENDER, FULL RANGE OF MOTION, EXTREMITIES: NONTENDER, FULL RANGE OF MOTION SKIN: COLOR PINK, DRY, NO TURGOR, NO RASH, NO LACERATIONS, NO ABRASIONS, NO CONTUSIONS. LYMPHATIC: DEFERRED Results (Laboratory/Radiology) Laboratory/Radiology Laboratory Tests Test 10/29/24 12:50 10/29/24 13:51 White Blood Count 7.5 K/uL (4.8-10.8) Red Blood Count 4.69 MIL/uL (4.00-5.50) Hemoglobin 13.6 g/dL (12.0-16.0) Hematocrit 43.1 % (36-48) Mean Corpuscular Volume 91.9 fL (79-99) Mean Corpuscular Hemoglobin 29.0 pg (27.0-33.0) Mean Corpuscular Hemoglobin Concent 31.6 g/dL (32.0-36.0) L Red Cell Distribution Width 12.5 % (11.0-15.5) Platelet Count 182 K/uL (130-400) Mean Platelet Volume 9.9 fL (7.5-10.5) Immature Granulocyte % (Auto) 0.3 % (0-1) Neutrophils (%) (Auto) 71.4 % (40.0-77.0) Lymphocytes (%) (Auto) 19.4 % (21.0-51.0) L Monocytes (%) (Auto) 6.8 % (3.0-13.0) Eosinophils (%) (Auto) 1.7 % (0.0-8.0) Basophils (%) (Auto) 0.4 % (0.0-5.0) Neutrophils # (Auto) 5.4 K/uL (1.8-7.7) Lymphocytes # (Auto) 1.5 K/uL (1.0-4.8) Monocytes # (Auto) 0.5 K/uL (0.1-1.0) Eosinophils # (Auto) 0.13 K/uL (0.00-0.70) Basophils # (Auto) 0.03 K/uL (0.00-0.20) Absolute Immature Granulocyte (auto 0.02 K/uL (0-1) Nucleated Red Blood Cells 0.0 % (0.0-0.19) Sodium Level 142 mmol/L (136-145) Potassium Level 3.9 mmol/L (3.5-5.1) Chloride Level 103 mmol/L (101-111) Carbon Dioxide Level 32 mmol/L (21-32) Blood Urea Nitrogen 15 mg/dL (7-18) Creatinine 0.6 mg/dL (0.5-1.0) Glomerular Filtration Rate Calc 99 mL/min (>90) Random Glucose 203 mg/dL (70-105) H Total Calcium 9.0 mg/dL (8.5-10.1) Lipase 58 U/L (16-77) Urine Color YELLOW (YELLOW) Urine Appearance HAZY (CLEAR) Urine pH 6.0 (5.0-8.0) Urine Specific [place] 1.028 (1.001-1.031) Urine Protein 10 mg/dL (NEGATIVE) H Urine Glucose (UA) 70 mg/dL (NEGATIVE) H Urine Ketones 10 mg/dL (NEGATIVE) H Urine Occult Blood NEGATIVE (NEGATIVE) Urine Nitrate NEGATIVE (NEGATIVE) Urine Bilirubin NEGATIVE mg/dL (NEGATIVE) Urine Urobilinogen 2.0 mg/dL (0.2-1.0) H Urine Leukocyte Esterase NEGATIVE Dave/uL Urine RBC 2-5 /HPF (0-1) H Urine WBC 0-1 /HPF (0-1) Urine Squamous Epithelial Cells FEW /HPF (0-2) Urine Bacteria MOD /HPF (None Seen) mal. Visible lung bases are clear. The liver is normal in size and smooth in contour without lesions or biliary duct dilation. The spleen is normal in size without lesions. Couple of punctate calcifications within the gallbladder neck. The pancreas appears normal without pancreatic duct dilation. 4.8 cm left adrenal gland mass with predominantly fatty component, miniscule calcification, and thick peripheral soft tissue density without any surrounding inflammatory changes. Both kidneys appear unremarkable. Cortical nephrograms are symmetric and normal in appearance bilaterally. No evidence for intra-abdominal free air or organized fluid collection. No retrocrural, intraabdominal, or retroperitoneal lymphadenopathy identified. No aortic aneurysmal dilation or dissection identified. PELVIS: No evidence for free air or organized pelvic fluid collection. No significant pelvic adenopathy detected. Fluid within the large bowel loops as well as moderate stool burden. Trace free fluid scattered within the left lower abdomen. Nominal submucosal edema along the distal colon. Terminal ileum appears normal. The appendix appears normal. The urinary bladder appears unremarkable. Uterus is absent. Mild thoracolumbar spondylosis. IMPRESSION: Findings suggesting mild inflammatory or infectious colitis. 4.8 cm left adrenal gland mass, perhaps angiomyolipoma or myelolipoma, unchanged since 2020. Mild cholelithiasis. Labs Reviewed?: Yes ED Course ED Course Orders Procedure Category Date Status Time Cbc With Differential LAB 10/29/24 Complete 12:04 Urinalysis Profile LAB 10/29/24 Complete 12:04 Ct Abdomen/Pelvis CT 10/29/24 Resulted W/Contrast 12:04 0.9%Nacl 1000ml (Ns PHA 10/29/24 Complete 1000ml) 12:30 Lipase LAB 10/29/24 Complete 12:04 Basic Metabolic Panel LAB 10/29/24 Complete 12:04 Ketorolac PHA 10/29/24 Complete Tromethamine 15mg/Ml 12:30 Iohexol (Omnipaque) PHA 10/29/24 Complete 13:53 Current Medications Medications (Trade) Dose Ordered Sig/Norma Route PRN Reason Start Time Stop Time Status Last Admin Dose Admin Iohexol (Omnipaque) 75 ml STK-MED ONCE IV 10/29/24 13:53 10/29/24 13:53 DC Ketorolac Tromethamine (toRADol) 15 mg ONCE ONCE IV 10/29/24 12:30 10/29/24 12:31 DC 10/29/24 13:58 Sodium Chloride 1,000 ml @ 0 mls/hr ONCE ONCE IV 10/29/24 12:30 10/29/24 12:31 DC 10/29/24 13:57 Vital Signs Date Time Temp Pulse Resp B/P (MAP) Pulse Ox O2 Delivery O2 Flow Rate FiO2 10/29/24 12:50 97.9 72 17 144/66 96 Room Air* 0 21 10/29/24 12:01 97.2 74 16 113/70 97 Room Air 0 1530/LABS UNREMARKABLE OTHER THAN DIABETES WITH HYPERGLYCEMIA. CT DEMONSTRATES COLITIS PATIENT IS SENT HOME WITH BENTYL GIVEN REHYDRATION INSTRUCTIONS TOLD TO SEE HER PRIMARY CARE DOCTOR Medical Decision Making MDM MEDICAL DISCHARGE MAKING BASED ON ABDOMINAL LABS AND CT OF THE ABDOMEN TO RULE OUT DIVERTICULITIS VERSUS HERNIA VERSUS APPENDICITIS CT DEMONSTRATES MILD COLITIS, CHOLELITHIASIS WITHOUT OBSTRUCTION LABS UNREMARKABLE OTHER THAN UNCONTROLLED DIABETES PATIENT DISCHARGED HOME WITH COLITIS PRESCRIBED BENTYL DX & DISP Disposition: Discharge Departure Impression: Primary Impression: Acute colitis Additional Impression: Uncontrolled diabetes mellitus Condition: Stable Scripts Dicyclomine HCl (Bentyl) 20 Mg Tab 20 MG PO Q6HPRN PRN for ABDOMINAL PAIN/CRAMPS, #20 TAB Prov: MARYCARMEN CHEN [employer] 10/29/24 Metronidazole (Metronidazole) 500 Mg Tablet 1 TAB PO TID for 7 Days, #21 TAB 0 Refills Prov: MARYCARMEN CHEN [employer] 10/29/24 Additional Instructions: FOLLOW-UP WITH PRIMARY CARE PROVIDER IN 1 TO 2 DAYS. TAKE MEDICATIONS DIRECTED HERE IN THE EMERGENCY ROOM. OKAY TO CONTINUE HOME MEDICATIONS UNLESS OTHERWISE DISCUSSED DURING YOUR VISIT IN THE EMERGENCY ROOM TODAY. RETURN TO YOUR NEAREST EMERGENCY ROOM IF SYMPTOMS WORSEN OR IF THERE IS NO IMPROVEMENT. CALL 911 IF YOU NEED IMMEDIATE ASSISTANCE. TAKE TYLENOL OR MOTRIN [id number] NEEDED AND IF NO CONTRAINDICATIONS ARE PRESENT. INCREASE ORAL HYDRATION. A WOUND CULTURE OR URINE CULTURE WAS ORDERED HERE IN THE EMERGENCY ROOM DEPARTMENT PLEASE FOLLOW-UP WITH PRIMARY CARE PROVIDER AND ADVISE THEM TO GET REPEAT PORTS FROM OUR FACILITY. IF YOU HAD ANY MELISSA WRAP/SPLINTS THAT WERE APPLIED HERE, PLEASE DO NOT REMOVE THEM UNTIL YOU SEE YOUR PRIMARY CARE OR SPECIALTY. TAKE FLAGYL DIRECTED UNTIL GONE. TAKE BENTYL DIRECTED FOR CRAMPING. SEE YOUR PRIMARY CARE DOCTOR FOR FOLLOW UP AND INCREASE YOUR FLUIDS. Referrals: JOSELUIS DE LEON DO (PCP) Time of Disposition: 15:31 I have reviewed the case, and I agree with, Diagnosis and Plan MARYCARMEN CHEN NP Oct 29, 2024 12:07 BHUMI MONTANO DO Oct 29, 2024 18:38
--- NOTE | 2024-10-29 12:15 | NUR ---
PATIENT IN ER LOBBY. PENDING GFR RESULTS, IV SITE, & CONSENT FOR CT EXAM.
[2024-10-29 12:50] VITALS: BP 144/66; PULSE 72; RESP 17; TEMP 97.8; O2SAT 96
--- NOTE | 2024-10-29 12:55 | NUR ---
URINE AND BLOOD SAMPLES SENT TO LAB.
--- NOTE | 2024-10-29 12:55 | NUR ---
PLACED 20G ON RIGHT UPPER ARM.
[2024-10-29 13:14] LABS: BASOPHILS # (AUTO) 0.03 K/uL (0.00-0.20); BASOPHILS % (AUTO) 0.4 % (0.0-5.0); EOSINOPHILS # (AUTO) 0.13 K/uL (0.00-0.70); EOSINOPHILS % (AUTO) 1.7 % (0.0-8.0); HEMATOCRIT 43.1 % (36-48); IMMATURE GRANULOCYTE ABSOLUTE 0.02 K/uL (0-1); LYMPHOCYTES # (AUTO) 1.5 K/uL (1.0-4.8); LYMPHOCYTES % (AUTO) 19.4 % (21.0-51.0); MEAN CORPUSCULAR HGB CONC 31.6 g/dL (32.0-36.0); MEAN CORPUSCULAR VOLUME 91.9 fL (79-99); MONOCYTES # (AUTO) 0.5 K/uL (0.1-1.0); MONOCYTES % (AUTO) 6.8 % (3.0-13.0); NEUTROPHILS # (AUTO) 5.4 K/uL (1.8-7.7); NEUTROPHILS % (AUTO) 71.4 % (40.0-77.0); PLATELET COUNT (AUTO) 182 K/uL (130-400); RED BLOOD CELL COUNT(AUTO) 4.69 MIL/uL (4.00-5.50); RED CELL DISTRIBUTION WIDTH 12.5 % (11.0-15.5); WHITE BLOOD COUNT (AUTO) 7.5 K/uL (4.8-10.8)
[2024-10-29 13:23] LABS: CREATININE 0.6 mg/dL (0.5-1.0); POTASSIUM 3.9 mmol/L (3.5-5.1)
--- NOTE | 2024-10-29 13:52 | NUR ---
STILL PENDING CONSENT FOR CT EXAM.
[2024-10-29] MEDS ORDERED: IOHEXOL-350 75 ML VIAL IV ONE (13:53)
[2024-10-29] MEDS: 0.9%NACL 1000ML 1,000 ML IV ONE (13:57)
[2024-10-29] MEDS: ketOROlac 15MG/ML VIAL (15MG/ML) IV ONE (13:58)
[2024-10-29 14:24] LABS: BILIRUBIN,URINE NEGATIVE (NEGATIVE); COLOR,URINE YELLOW (YELLOW); GLUCOSE, URINE (UA) 70 mg/dL (NEGATIVE); KETONES,URINE 10 mg/dL (NEGATIVE); LEUKOCYTE ESTERASE ,URINE NEGATIVE Leu/uL (NEGATIVE); NITRATE,URINE NEGATIVE (NEGATIVE); OCCULT BLOOD,URINE NEGATIVE (NEGATIVE); PROTEIN,URINE 10 mg/dL (NEGATIVE)
[2024-10-29 14:32] LABS: ADD UA MICROSCOPIC YES; APPEARANCE,URINE HAZY (CLEAR)
[2024-10-29 14:37] LABS: BACTERIA,URINE MOD /HPF (None Seen); MUCUS,URINE RARE LPF (None Seen); SQUAMOUS EPITHELIAL CELL,UR FEW /HPF (0-2); WBC,URINE 0-1 /HPF (0-1)
--- NOTE | 2024-10-29 14:58 | HMCIMG ---
CT ABDOMEN WITH CONTRAST. CT PELVIS WITH CONTRAST INDICATION: Left lower abdominal tenderness TECHNIQUE: Routine transaxial images using 5 mm slice thickness were obtained after the intravenous infusion of 75 mL of Omnipaque 350 without adverse effects. Oral contrast was not administered. Rectal contrast was not administered. Coronal and sagittal reformatted images acquired for interpretation. CT was performed with one or more of the following dose reduction techniques: Automated exposure control, adjustment of the mA and/or kV according to patient size, or use of iterative reconstruction technique. COMPARISON: None FINDINGS: ABDOMEN: Heart size is normal. Visible lung bases are clear. The liver is normal in size and smooth in contour without lesions or biliary duct dilation. The spleen is normal in size without lesions. Couple of punctate calcifications within the gallbladder neck. The pancreas appears normal without pancreatic duct dilation. 4.8 cm left adrenal gland mass with predominantly fatty component, miniscule calcification, and thick peripheral soft tissue density without any surrounding inflammatory changes. Both kidneys appear unremarkable. Cortical nephrograms are symmetric and normal in appearance bilaterally. No evidence for intra-abdominal free air or organized fluid collection. No retrocrural, intraabdominal, or retroperitoneal lymphadenopathy identified. No aortic aneurysmal dilation or dissection identified. PELVIS: No evidence for free air or organized pelvic fluid collection. No significant pelvic adenopathy detected. Fluid within the large bowel loops as well as moderate stool burden. Trace free fluid scattered within the left lower abdomen. Nominal submucosal edema along the distal colon. Terminal ileum appears normal. The appendix appears normal. The urinary bladder appears unremarkable. Uterus is absent. Mild thoracolumbar spondylosis. IMPRESSION: Findings suggesting mild inflammatory or infectious colitis. 4.8 cm left adrenal gland mass, perhaps angiomyolipoma or myelolipoma, unchanged since 2020. Mild cholelithiasis.
[2024-10-29] MEDS ORDERED: SEMA2PEN SQ (15:27)
--- NOTE | 2024-10-29 15:27 | NUR ---
HOME MEDICATIONS ENTERED, PENDING TO BE RECONSILED BY [facility]AS[facility].
[2024-10-29] MEDS ORDERED: METR-172 PO (15:33)
[2024-10-29] MEDS ORDERED: DICY20TA2 PO (15:33)
--- NOTE | 2024-10-29 16:01 | NUR ---
PATIENT WITH DISCHARGE ORDERS. DISCUSSED PLAN OF CARE, PAIN MANAGERMENT, FOLLOW UP APPOITMENTS AND THE CONTINUATION OF HOME MEDICATIONS.
== END 2024-10-29 16:17 | disposition home or self-care (01) ==
LOC: EDH 11:46
DX: K52.9 Noninfective gastroenteritis and colitis, unspecified (principal); E11.65 Type 2 diabetes mellitus with hyperglycemia; E66.01 Morbid (severe) obesity due to excess calories; E78.00 Pure hypercholesterolemia, unspecified; E11.40 Type 2 diabetes mellitus with diabetic neuropathy, unspecified; I10 Essential (primary) hypertension; Z79.84 Long term (current) use of oral hypoglycemic drugs; Z79.85 Long-term (current) use of injectable non-insulin antidiabetic drugs; Z79.899 Other long term (current) drug therapy; Z88.0 Allergy status to penicillin; Z90.710 Acquired absence of both cervix and uterus
CPT/HCPCS: 99285; 74177; 96374; 96361; 80048; 83690; 85025; 81001; 36415; J1885; J7030; Q9967